=== PATIENT | female | born 1945 | race American Indian/Alaskan Native ===

== ENCOUNTER 2017-02-23 14:47 | Inpatient (IN) | payer MEDICARE ==
[2017-02-23 18:35] VITALS: BMI 23.3
[2017-02-23] MEDS ORDERED: ALENDRONATE 70 MG TAB PO SCH ×2 (19:45→20:00)
[2017-02-23 20:19] VITALS: RESP 20
[2017-02-23] MEDS: Oxycodone/Acetaminophen 5/325 mg Tab PO PRN (21:55)
[2017-02-23] MEDS ORDERED: Patient's Own Med (Simvastatin [Simvastatin] 20 MG) PO SCH (22:00)
[2017-02-23] MEDS: Insulin Regular 100 units/ml SC SCH (23:47)
[2017-02-24] MEDS: Oxycodone/Acetaminophen 5/325 mg Tab PO PRN ×2 (06:26→15:10)
[2017-02-24] MEDS: Insulin Regular 100 units/ml SC SCH ×4 (06:29→22:40)
[2017-02-24] MEDS: Cilostazol 50 mg Tab UD PO SCH ×2 (08:30→17:11)
[2017-02-24] MEDS ORDERED: BISOPROLOL FUMARATE PO SCH (09:00)
[2017-02-24] MEDS ORDERED: Cilostazol 50 mg Tab UD PO SCH (09:00)
[2017-02-24] MEDS ORDERED: HCTZ PO SCH (09:00)
--- NOTE | 2017-02-24 22:09 | HP ---
HISTORY OF PRESENT ILLNESS: This is a 72-year-old -Citizen Of [place] female with history of multiple m edical problems who was admitted to transitional care unit after acute care in [facility]. The patient was admitted for peripheral vascular disease and she underwent a vascular bypass surgery by Frantz Gaytan. The patient had uneventful postoperative course. She was discharged to transitional ca re unit for wound healing as well as deconditioning and rehabilitation. REVIEW OF SYSTEMS: Other review of systems is negative. ALLERGIES: THE PATIENT HAS ALLERGY TO PENICILLIN, SULFA AND TOMATO. SOCIAL HISTORY: Positive smoker, more than 50 years. No ETOH or substance abuse. FAMILY HISTORY: Not contributory. HOME MEDICATIONS: Include aspirin 81 mg, Fosamax 70 mg weekly, metformin 500 mg twice a day, glipizi de 10 mg twice a day, Januvia 100 mg daily, Lipitor 10 mg daily, Pletal 50 mg twice a day, bisoprolol 5 mg daily. PAST MEDICAL HISTORY: Hypertension, type 2 diabetes mellitus, peripheral vascular disease, smoker. PHYSICAL EXAMINATION: GENERAL: The patient is in bed, comfortable at the time of this examination. VITAL SIGNS: Blood pressure 148/70, temperature 97.8, respiratory rate 20, and pulse 77. HEENT: Pupils equal, reactive to light. Normal-appearing mucosa of the conjunctivae, oropharyngeal and nasal membrane mucosa. NECK: Supple, no JVD, no carotid bruit, no lymph node, no thyromegaly. CHEST AND LUNGS: Bilateral symmetrical expansion, good air exchange, no rales, no rhonchi. CARDIOVASCULAR: PMI not localized. S1, S2. No additional sounds. ABDOMEN: Normoactive bowel sounds, no tenderness, no organomegaly, no masses. EXTREMITIES: No cyanosis, no clubbing, no edema. CENTRAL NERVOUS SYSTEM: Alert, awake, oriented x 3. No neurological deficits could be appreciated. ASSESSMENT: 1. Peripheral vascular disease status post vascular bypass surgery. 2. Hypertension. 3. Type 2 diabetes mellitus. 4. Smoker. PLAN: We will do venous Doppler for the swelling of the right more than the left lower extremity and we will elevate the legs and continue current medications. Ney Faust MD cc: 167 TT: 02/24/2017 22:08:56 mn
[2017-02-25] MEDS: Oxycodone/Acetaminophen 5/325 mg Tab PO PRN ×4 (00:16→20:07)
[2017-02-25] MEDS: Insulin Regular 100 units/ml SC SCH ×4 (06:07→22:27)
[2017-02-25] MEDS: Cilostazol 50 mg Tab UD PO SCH ×2 (08:30→17:27)
[2017-02-25] MEDS: guaiFENesin 100 mg/5 ml Syrup UD PO PRN ×2 (17:27→21:30)
[2017-02-26] MEDS: Oxycodone/Acetaminophen 5/325 mg Tab PO PRN ×2 (05:01→22:42)
[2017-02-26] MEDS: Insulin Regular 100 units/ml SC SCH ×3 (06:41→17:11)
[2017-02-26] MEDS: Cilostazol 50 mg Tab UD PO SCH ×2 (09:12→17:13)
[2017-02-26] MEDS: guaiFENesin 100 mg/5 ml Syrup UD PO PRN (09:17)
[2017-02-26] MEDS ORDERED: Oxycodone/Acetaminophen 5/325 mg Tab PO PRN (09:25)
--- NOTE | 2017-02-26 15:47 | PN ---
DATE: 02/26/2017 SUBJECTIVE: The patient is seen today, 02/26/2017. She is not in any cardiopulmonary distress and t he patient is cooperative with physical therapy. OBJECTIVE: VITAL SIGNS: Blood pressure 144/57, temperature 98.6, respiratory rate 20, and pulse 78. HEENT: Pupils equal, reactive to light. Normal-appearing mucosa of the conjunctivae, oropharyngeal and nasal membrane mucosa. NECK: Supple. No JVD, no carotid bruit, no lymph node, no thyromegaly. CHEST AND LUNGS: Bilateral symmetrical expansion, good air exchange. No rales, no rhonchi. CARDIOVASCULAR: PMI not localized. S1, S2. No additional sounds. ABDOMEN: Normoactive bowel sounds. No tenderness, no organomegaly, no masses. EXTREMITIES: No cyanosis, no clubbing, no edema. CENTRAL NERVOUS SYSTEM: Alert, awake, oriented x 3. No neurological deficits could be appreciated. ASSESSMENT: 1. Severe peripheral vascular disease, status post bypass revascularization surgery. 2. Type 2 diabetes mellitus. 3. Hypertension. 4. Hypercholesterolemia. PLAN: Continue current medications and physical therapy. We will hold the antihyperglycemic medicat ions today as the blood glucose is down to 50. Ney Faust MD cc: 167 TT: 02/26/2017 15:46:39 Confirmation # [id number] Dictation # [id number] mn
[2017-02-27] MEDS: Insulin Regular 100 units/ml SC SCH ×4 (00:23→16:32)
[2017-02-27] MEDS: Cilostazol 50 mg Tab UD PO SCH ×2 (09:18→16:27)
[2017-02-27] MEDS: guaiFENesin 100 mg/5 ml Syrup UD PO PRN ×2 (09:21→20:46)
[2017-02-27] MEDS: Oxycodone/Acetaminophen 5/325 mg Tab PO PRN ×2 (09:26→20:46)
[2017-02-28] MEDS: Insulin Regular 100 units/ml SC SCH ×5 (00:15→22:07)
[2017-02-28] MEDS: Oxycodone/Acetaminophen 5/325 mg Tab PO PRN ×2 (07:00→21:25)
[2017-02-28] MEDS: Cilostazol 50 mg Tab UD PO SCH ×2 (09:37→17:25)
[2017-02-28] MEDS: guaiFENesin 100 mg/5 ml Syrup UD PO PRN (12:35)
[2017-02-28] MEDS ORDERED: Azithromycin 500 MG in Sodium Chloride 0.9% 250 ML IVPB SCH (17:00)
[2017-03-01] MEDS: Oxycodone/Acetaminophen 5/325 mg Tab PO PRN ×2 (06:18→17:44)
[2017-03-01] MEDS: Insulin Regular 100 units/ml SC SCH ×4 (08:25→23:18)
[2017-03-01] MEDS: Cilostazol 50 mg Tab UD PO SCH ×2 (09:52→17:45)
[2017-03-01] MEDS: guaiFENesin 100 mg/5 ml Syrup UD PO PRN (10:01)
[2017-03-01] MEDS ORDERED: methylPREDNISolone 40 MG in Sodium Chloride 0.9% 50 ML IVPB SCH (17:00)
[2017-03-01] MEDS: Azithromycin 500 MG in Sodium Chloride 0.9% 250 ML IVPB SCH (18:18)
--- NOTE | 2017-03-01 18:30 | PN ---
DATE: 03/01/2017 SUBJECTIVE: The patient is seen today 03/01/2017. She is still having shortness of breath, cough an d wheezing. PHYSICAL EXAMINATION: VITAL SIGNS: Blood pressure 159/69, temperature 97.9, respiratory rate 20, and pulse 72. HEENT: Pupils equal, reactive to light. Normal-appearing mucosa of the conjunctivae, oropharyngeal and nasal membrane mucosa. NECK: Supple, no JVD, no carotid bruit. No lymph node. No thyromegaly. CHEST AND LUNGS: Bilateral symmetrical expansion. Bilateral rhonchi scattered all over lung haskins. CARDIOVASCULAR: PMI not localized. S1, S2. No additional sounds. ABDOMEN: Normoactive bowel sounds, no tenderness, no organomegaly, no masses. EXTREMITIES: No cyanosis, no clubbing, no edema. CENTRAL NERVOUS SYSTEM: Alert, awake, oriented x 3. No neurological deficits could be appreciated. ASSESSMENT: 1. Acute bronchitis. 2. Exacerbation of chronic obstructive pulmonary disease. 3. Type 2 diabetes mellitus. 4. Hypertension. PLAN: We will do a chest x-ray. Start the patient on DuoNeb as well as Solu-Medrol and azithromycin 500 mg IV daily. Ney Faust MD cc: 167 TT: 03/01/2017 18:30:08 Confirmation # [id number] Dictation # [id number] josué
[2017-03-01] MEDS: Albuterol-Ipratrop 3 mg / 0.5 (3 ml) UD INH SCH (19:25)
[2017-03-01] MEDS: methylPREDNISolone 40 MG in Sodium Chloride 0.9% 50 ML IVPB SCH (21:26)
[2017-03-02] MEDS: Albuterol-Ipratrop 3 mg / 0.5 (3 ml) UD INH SCH ×4 (01:00→20:26)
[2017-03-02] MEDS: methylPREDNISolone 40 MG in Sodium Chloride 0.9% 50 ML IVPB SCH ×3 (05:00→20:27)
[2017-03-02] MEDS: Insulin Regular 100 units/ml SC SCH ×4 (07:00→22:09)
[2017-03-02] MEDS: Cilostazol 50 mg Tab UD PO SCH ×2 (08:04→16:51)
--- NOTE | 2017-03-02 09:12 | RAD ---
HISTORY: pneumonia COMPARISON: Comparison is made to 11/10/2012 TECHNIQUE: Chest PA and lateral FINDINGS: LUNGS: Prominent lung markings at the mid and lower lungs are noted. No evidence of significant change otherwise since the previous exam. PLEURA: No significant pleural effusion identified. No pneumothorax apparent. CARDIOVASCULAR: Mildly enlarged cardiac silhouette. OSSEOUS STRUCTURES: No significant abnormalities. VISUALIZED UPPER ABDOMEN: Normal. OTHER FINDINGS: None. IMPRESSION: Prominent lung markings in the perihilar and lower lungs. Correlate clinically for bronchitis. No definite radiographic evidence of pneumonia. Mild cardiomegaly.
[2017-03-02] MEDS ORDERED: ALENDRONATE 70 MG TAB PO SCH (12:15)
[2017-03-02] MEDS: Oxycodone/Acetaminophen 5/325 mg Tab PO PRN (13:48)
[2017-03-02] MEDS: Azithromycin 500 MG in Sodium Chloride 0.9% 250 ML IVPB SCH (16:51)
[2017-03-03] MEDS: Albuterol-Ipratrop 3 mg / 0.5 (3 ml) UD INH SCH ×4 (01:13→19:08)
[2017-03-03] MEDS: methylPREDNISolone 40 MG in Sodium Chloride 0.9% 50 ML IVPB SCH ×3 (04:55→21:13)
[2017-03-03] MEDS: Insulin Regular 100 units/ml SC SCH ×4 (07:35→23:00)
[2017-03-03] MEDS: Cilostazol 50 mg Tab UD PO SCH ×2 (08:37→17:23)
[2017-03-03] MEDS: Oxycodone/Acetaminophen 5/325 mg Tab PO PRN (16:28)
[2017-03-03] MEDS: Azithromycin 500 MG in Sodium Chloride 0.9% 250 ML IVPB SCH (17:23)
[2017-03-03] MEDS: guaiFENesin 100 mg/5 ml Syrup UD PO PRN (21:12)
--- NOTE | 2017-03-03 23:10 | PN ---
DATE: 03/03/2017 SUBJECTIVE: The patient was seen today, 03/03/2017. She has still a cough with wheezing. PHYSICAL EXAMINATION: VITAL SIGNS: Blood pressure 130/67, , respiratory rate 20, pulse is 92. HEENT: Pupils equal, reactive to light. Normal-appearing mucosa of the conjunctivae, oropharyngeal and nasal membrane mucosa. NECK: Supple. No JVD, no carotid bruit, no lymph node, no thyromegaly. CHEST AND LUNGS: Bilateral symmetrical expansion with diffuse rhonchi all over lung haskins. CARDIOVASCULAR: PMI not localized. S1, S2. No additional sounds. ABDOMEN: Normoactive bowel sounds, no tenderness, no organomegaly, no masses. EXTREMITIES: No cyanosis, no clubbing, no edema. CENTRAL NERVOUS SYSTEM: Alert, awake, oriented x 2. No neurological deficits could be appreciated. ASSESSMENT: 1. Acute bronchitis with exacerbation of chronic obstructive pulmonary disease. 2. Smoker. 3. Status post peripheral vascular disease, revascularization surgery. 4. Type 2 diabetes mellitus. 5. Hypertension. PLAN: We will continue current steroid and IV antibiotics and the patient still has ree and sutures that will have a followup with Dr. Gaytan. Ney Faust MD cc: 167 TT: 03/03/2017 23:08:58 Confirmation # [id number] Dictation # [id number] ln MTDD
[2017-03-04] MEDS: Albuterol-Ipratrop 3 mg / 0.5 (3 ml) UD INH SCH ×4 (01:08→19:39)
[2017-03-04] MEDS: methylPREDNISolone 40 MG in Sodium Chloride 0.9% 50 ML IVPB SCH (05:14)
[2017-03-04] MEDS: Insulin Regular 100 units/ml SC SCH ×4 (06:49→22:27)
[2017-03-04] MEDS: Cilostazol 50 mg Tab UD PO SCH ×2 (08:58→16:46)
[2017-03-04] MEDS: guaiFENesin 100 mg/5 ml Syrup UD PO PRN ×2 (12:28→22:03)
[2017-03-04] MEDS: Oxycodone/Acetaminophen 5/325 mg Tab PO PRN ×2 (12:30→22:06)
[2017-03-05] MEDS: Albuterol-Ipratrop 3 mg / 0.5 (3 ml) UD INH SCH ×3 (01:18→13:00)
[2017-03-05] MEDS: Insulin Regular 100 units/ml SC SCH ×2 (07:27→12:17)
[2017-03-05 08:16] VITALS: BP 141/65; PULSE 93; TEMP 97.7; O2SAT 99
[2017-03-05] MEDS: guaiFENesin 100 mg/5 ml Syrup UD PO PRN (08:44)
[2017-03-05] MEDS: Cilostazol 50 mg Tab UD PO SCH (08:45)
--- NOTE | 2017-03-06 00:23 | DS ---
REASON FOR ADMISSION: This is a 72-year-old -[place] female who was admitted to transitional care unit after acute care admission for bypass surgery for revascularization of severe peripheral vascular disease on the right side. The patient did well in physical therapy. The patient's stay was complicated with exacerbation of chronic obstructive pulmonary disease and acute bronchitis. The patient was started on IV steroids, . The patient was discharged to home to follow up with Dr. Cabrera in 2 days for stitch and staple removal. FINAL DIAGNOSES: 1. Status post revascularization of severe peripheral vascular disease with bypass surgery. 2. Hypertension. 3. Type 2 diabetes mellitus. 4. Smoker. 5. Chronic obstructive pulmonary disease. 4. Acute bronchitis. [facility] Maury Faust MD cc: 167 TT: 03/06/2017 00:23:03 josué GALE
== END 2017-03-05 14:00 | disposition home or self-care (01) | DRG 949 ==
LOC: H.TCU 18:35
PROVIDERS: ADMIT Internal Medicine; ATTEND Internal Medicine
PROC: F08Z4ZZ Home Management Treatment (ICD-10-PCS; principal; 2017-02-23)
PROC: F07Z9ZZ Gait Training/Functional Ambulation Treatment (ICD-10-PCS; 2017-02-23)
PROC: F07L6ZZ Therapeutic Exercise Treatment of Musculoskeletal System - Lower Back / Lower Extremity (ICD-10-PCS; 2017-02-23)
PROC: 5A0945Z Assistance with Respiratory Ventilation, 24-96 Consecutive Hours (ICD-10-PCS; 2017-02-23)
DX: Z48.812 Encounter for surgical aftercare following surgery on the circulatory system (principal); J44.0 Chronic obstructive pulmonary disease with (acute) lower respiratory infection; E11.9 Type 2 diabetes mellitus without complications; J44.1 Chronic obstructive pulmonary disease with (acute) exacerbation; J20.9 Acute bronchitis, unspecified; I10 Essential (primary) hypertension; E78.00 Pure hypercholesterolemia, unspecified; F17.200 Nicotine dependence, unspecified, uncomplicated; I73.9 Peripheral vascular disease, unspecified; Z88.0 Allergy status to penicillin; Z88.2 Allergy status to sulfonamides; Z91.018 Allergy to other foods

== ENCOUNTER 2017-03-15 18:39 | Inpatient (IN) | payer MEDICARE ==
[2017-03-15 21:03] VITALS: BMI 22.5
[2017-03-15] MEDS ORDERED: ALENDRONATE 70 MG TAB PO SCH (22:30)
[2017-03-15] MEDS ORDERED: Patient's Own Med (Simvastatin [Simvastatin] 20 MG) PO SCH (22:30)
[2017-03-15] MEDS: Insulin Regular 100 units/ml SC SCH (23:06)
[2017-03-16] MEDS: Insulin Regular 100 units/ml SC SCH ×4 (06:46→21:12)
[2017-03-16 08:23] VITALS: RESP 20
[2017-03-16] MEDS: Cilostazol 50 mg Tab UD PO SCH ×2 (08:32→17:59)
[2017-03-16] MEDS: Saccharomyces Boulardi 250 mg Cap PO SCH ×2 (08:32→17:57)
[2017-03-16] MEDS: Magnesium Oxide 400 mg Tab UD PO SCH ×2 (08:33→17:58)
[2017-03-16] MEDS: Pantoprazole 40 mg EC Tab PO SCH (08:33)
[2017-03-16] MEDS: Fluticasone-Salmeterol 250-50mcg Diskus INH SCH ×2 (08:34→17:58)
[2017-03-16] MEDS: Potassium Chloride 20 mEq ER Tab PO SCH (08:34)
[2017-03-16] MEDS: Potassium & Sodium Phosphate PO SCH (08:34)
[2017-03-16] MEDS ORDERED: HCTZ PO SCH (09:00)
[2017-03-16] MEDS ORDERED: BISOPROLOL FUMARATE PO SCH (09:00)
[2017-03-16] MEDS ORDERED: Calcium-Vit D 250 mg-125 Units Tab UD PO SCH (19:00)
--- NOTE | 2017-03-16 22:52 | HP ---
HISTORY OF PRESENT ILLNESS: This is a 72-year-old -[place] female who was admitted to transitional care unit after acute care at [facility] for persistent vomiting, abdominal pain and possible infection at the site of previous left fem-fem bypass surgery. The patient was on IV antibiotics and that was continued . No shortness of breath. REVIEW OF SYSTEMS: Other review of systems is negative. ALLERGY: PENICILLIN, SULFA AND TOMATO. PAST MEDICAL HISTORY: Hypertension, type 2 diabetes mellitus, peripheral vascular disease, Status post left fem-fem bypass. SOCIAL HISTORY: The patient is a smoker. No EtOH or substance abuse. FAMILY HISTORY: Noncontributory. MEDICATIONS: The patient is on doxycycline 100 mg twice a day, metformin 500 mg twice a day, glipizide 10 mg twice a day, hydrochlorothiazide 6.25 mg daily, Januvia 100 mg daily, atorvastatin 10 mg daily, Plavix 75 mg daily, Pletal 50 mg twice a day, bisoprolol 5 mg daily. PHYSICAL EXAMINATION: GENERAL: The patient is in bed, comfortable, not in any cardiopulmonary distress. VITAL SIGNS: Blood pressure 128/59, temperature 99, respiratory rate 20, and pulse 85. HEENT: Pupils equal, reactive to light. Normal-appearing mucosa of the conjunctivae, oropharyngeal and nasal membrane mucosa. NECK: Supple, no JVD, no carotid bruit, no lymph node, no thyromegaly. CHEST AND LUNGS: Bilateral symmetrical expansion, good air exchange, no rales, no rhonchi. CARDIOVASCULAR: PMI not localized. S1, S2. No additional sounds. ABDOMEN: Normoactive bowel sounds, no tenderness, no organomegaly, no masses. EXTREMITIES: No cyanosis, no clubbing, no edema. CENTRAL NERVOUS SYSTEM: Alert, awake, oriented x 3. No neurological deficits could be appreciated. ASSESSMENT: 1. Infection at the site of the previously left femoral-femoral bypass. 2. Hypertension. 3. Peripheral vascular disease. 4. Type 2 diabetes mellitus. PLAN: Continue current IV antibiotics and physical therapy for deconditioning and resume the patient's home medications. [facility] Maury Faust MD cc: 167 TT: 03/16/2017 22:51:45 josué GALE
[2017-03-17] MEDS: Insulin Regular 100 units/ml SC SCH ×4 (06:43→21:14)
[2017-03-17] MEDS: Pantoprazole 40 mg EC Tab PO SCH (08:18)
[2017-03-17] MEDS: Potassium Chloride 20 mEq ER Tab PO SCH (08:19)
[2017-03-17] MEDS: Saccharomyces Boulardi 250 mg Cap PO SCH ×2 (08:20→17:31)
[2017-03-17] MEDS: Calcium-Vit D 250 mg-125 Units Tab UD PO SCH (08:20)
[2017-03-17] MEDS: Cilostazol 50 mg Tab UD PO SCH ×2 (08:21→17:29)
[2017-03-17] MEDS: Magnesium Oxide 400 mg Tab UD PO SCH ×2 (08:21→17:31)
[2017-03-17] MEDS: Potassium & Sodium Phosphate PO SCH (08:22)
[2017-03-17] MEDS: Fluticasone-Salmeterol 250-50mcg Diskus INH SCH ×2 (08:23→17:29)
--- NOTE | 2017-03-17 21:38 | PN ---
DATE: 03/17/2017 SUBJECTIVE: She is not in any cardiopulmonary distress. The patient is complaining of constipation. PHYSICAL EXAMINATION: VITAL SIGNS: Blood pressure 118/60, temperature 98.8, respiratory rate 20, and pulse is 90. HEENT: Pupils equal, reactive to light. Normal-appearing mucosa of the conjunctivae, oropharyngeal, and nasal membrane mucosa. NECK: Supple. No JVD. No carotid bruit. No lymph node. No thyromegaly. CHEST AND LUNGS: symmetrical expansion. Good air exchange. No rales. No rhonchi. CARDIOVASCULAR: PMI additional sounds. ABDOMEN: Normoactive bowel sounds. No tenderness. No organomegaly. No masses. EXTREMITIES: No cyanosis. No clubbing. No edema. CENTRAL NERVOUS SYSTEM: Alert, awake, oriented x 3. No neurological deficits could be appreciated. ASSESSMENT: Peripheral vascular disease, status post left fem-fem bypass; hypertension; type 2 diabetes mellitus. PLAN: We will give patient lactulose for constipation. Continue current medications. We will change the antibiotics to p.o. as patient does not have an IV access, and she is a hard needlestick at this time. Ney Faust MD cc: 167 TT: 03/17/2017 21:38:04 Confirmation # [id number] Dictation # [id number] tn MTDD
[2017-03-18] MEDS: Insulin Regular 100 units/ml SC SCH ×4 (06:33→21:21)
[2017-03-18] MEDS: Fluticasone-Salmeterol 250-50mcg Diskus INH SCH ×2 (08:50→16:48)
[2017-03-18] MEDS: Potassium Chloride 20 mEq ER Tab PO SCH (08:52)
[2017-03-18] MEDS: Calcium-Vit D 250 mg-125 Units Tab UD PO SCH (08:52)
[2017-03-18] MEDS: Pantoprazole 40 mg EC Tab PO SCH (08:52)
[2017-03-18] MEDS: Magnesium Oxide 400 mg Tab UD PO SCH ×2 (08:52→16:50)
[2017-03-18] MEDS: Cilostazol 50 mg Tab UD PO SCH ×2 (08:53→16:49)
[2017-03-18] MEDS: Potassium & Sodium Phosphate PO SCH (08:53)
[2017-03-18] MEDS: Saccharomyces Boulardi 250 mg Cap PO SCH ×2 (08:53→16:48)
[2017-03-18 19:43] VITALS: O2SAT 100
[2017-03-19] MEDS: Insulin Regular 100 units/ml SC SCH ×2 (07:05→12:15)
[2017-03-19 07:52] VITALS: BP 139/97; PULSE 96; TEMP 97.9
[2017-03-19] MEDS: Pantoprazole 40 mg EC Tab PO SCH (08:48)
[2017-03-19] MEDS: Fluticasone-Salmeterol 250-50mcg Diskus INH SCH (08:48)
[2017-03-19] MEDS: Saccharomyces Boulardi 250 mg Cap PO SCH (08:48)
[2017-03-19] MEDS: Potassium & Sodium Phosphate PO SCH (08:49)
[2017-03-19] MEDS: Potassium Chloride 20 mEq ER Tab PO SCH (08:49)
[2017-03-19] MEDS: Magnesium Oxide 400 mg Tab UD PO SCH (08:50)
[2017-03-19] MEDS: Calcium-Vit D 250 mg-125 Units Tab UD PO SCH (08:50)
[2017-03-19] MEDS: Cilostazol 50 mg Tab UD PO SCH (08:50)
--- NOTE | 2017-03-21 09:35 | DS ---
A late entry for discharge summary done on 03/19/2017. REASON FOR ADMISSION: This is a 72-year-old female with history of multiple medical problems who was admitted to transitional care unit for completion of IV antibiotic therapy. COURSE OF HOSPITALIZATION: The patient was started on physical therapy and occupational therapy, as well as to continue the IV antibiotics Vibramycin 100 mg twice a day, as per ID recommendations for possible postoperative infection. The patient tolerated it well, and she had no abdominal pain or vomiting. She was discharged home to continue the preadmission medications. FINAL DIAGNOSES: 1. Peripheral vascular disease, status post left fem-fem bypass. 2. Hypertension. 3. Type 2 diabetes mellitus. 4. Possible postoperative surgical site infection that was treated with Vibramycin 100 mg twice a day for a week. [facility] Maury Faust MD cc: 167 TT: 03/21/2017 09:34:43 jn MTDD
== END 2017-03-19 16:01 | disposition home or self-care (01) | DRG 946 ==
LOC: H.TCU 21:04
PROVIDERS: ADMIT Internal Medicine; ATTEND Internal Medicine
PROC: F07Z9FZ Gait Training/Functional Ambulation Treatment using Assistive, Adaptive, Supportive or Protective Equipment (ICD-10-PCS; principal; 2017-03-15)
PROC: F08Z4FZ Home Management Treatment using Assistive, Adaptive, Supportive or Protective Equipment (ICD-10-PCS; 2017-03-15)
PROC: F07L6FZ Therapeutic Exercise Treatment of Musculoskeletal System - Lower Back / Lower Extremity using Assistive, Adaptive, Supportive or Protective Equipment (ICD-10-PCS; 2017-03-16)
DX: T82.7XXD Infection and inflammatory reaction due to other cardiac and vascular devices, implants and grafts, subsequent encounter (principal); E11.9 Type 2 diabetes mellitus without complications; I10 Essential (primary) hypertension; I73.9 Peripheral vascular disease, unspecified; K59.00 Constipation, unspecified; F17.200 Nicotine dependence, unspecified, uncomplicated; Z88.0 Allergy status to penicillin; Z88.2 Allergy status to sulfonamides

== ENCOUNTER 2017-11-17 16:52 | Inpatient (IN) | payer MEDICARE ==
[2017-11-12 13:06] VITALS: BMI 23.3
[2017-11-17 21:23] VITALS: RESP 20
[2017-11-17] MEDS: Insulin Lispro (humaLOG) 100 Units/ml Inj SC SCH (23:15)
[2017-11-18] MEDS: Albuterol-Ipratrop 3 mg / 0.5 (3 ml) UD INH SCH ×4 (01:11→19:36)
[2017-11-18 07:16] LABS: HEMOGLOBIN 9.1 g/dL (12.0-16.0); MEAN CELL VOLUME 86.2 fl (81.0-99.0); MEAN CORPUSCULAR HEMOGLOBIN 27.5 pg (27.0-31.0); MEAN CORPUSCULAR HGB CONC 31.9 g/dL (33.0-37.0); RBC 3.32 Mil/uL (3.80-5.20); RED CELL DISTRIBUTION WIDTH 17.9 % (11.5-14.5); WHITE BLOOD COUNT 8.7 K/uL (4.8-10.8)
[2017-11-18 07:43] LABS: BLOOD UREA NITROGEN 8 mg/dl (7-17); CALCIUM 10.1 mg/dL (8.4-10.2); GFR AFRICAN-AMERICAN > 60; GFR NON-AFRICAN AMERICAN > 60
[2017-11-18] MEDS: Insulin Lispro (humaLOG) 100 Units/ml Inj SC SCH ×4 (09:38→23:33)
[2017-11-18] MEDS: Cilostazol 50 mg Tab UD PO SCH ×2 (09:41→16:50)
[2017-11-18] MEDS: Multivitamin With Minerals Tab PO SCH (09:41)
[2017-11-18] MEDS ORDERED: Tuberculin 5 Units/0.1 ml Inj ID ONE (10:00)
--- NOTE | 2017-11-18 12:23 | CP.PCM.CON ---
History of Present Illness - History of Present Illness History of Present Illness: Infectious Disease Consult Note- asked to see this patient at the request of for right lower leg cellulitis. HPI- patient is a 72 year old female with PMH of DM II, PVD s/p fem-fem bypass with grafts in 02/2017 who statew she ahs been getting swelling in her left ankle and foot for the past few weeks and she went to see her PMD and was sent to ED ( [facility]) for further evaluation and treatment. Pt. also states that she had noticed her 3rd and 4th toe were getting dark discoloration. Patient explains she had revision of her LE bypass done at [facility] to re -vascularize and was seen by ID specialsit there and has been on IV vancomycin since 11/13/2017 and she also states she has 2 wounds on her right ankle and lower leg region that are being addressed by wound nurse . she denies having open wounds at home and states it opened up 2 days ago on its' own denies any pus discharge. She was transferred to TCU here for rehab , PT and completion of her IV abx course. Patient denies any fever or chills but states her right ankle is swollen still and she has pain there as well. PMH: DM, HTN, PVD PSH: Colectomy, Hysterectomy, breast mass SH: Former smoker quit 3 weeks ago, no EtOH, No drug use All: PCN, Sulfa Meds: See MAR Review of Systems - Review of Systems Review of Systems: ROS- denies any fever or chills, denies any BACON, denies any cough, denies any sob, denies anyc hest pain, denies any abd, pain, denies any n/v, denies any dysurea , denies any diarrhea c/o right ankle swelling and pain Past Patient History - Infectious Disease Hx of Infectious Diseases: None - Past Medical History & Family History Past Medical History?: Yes - Past Social History Smoking Status: Former Smoker Alcohol: None Drugs: Denies Home Situation {Lives}: Alone - CARDIAC Hx Hypercholesterolemia: Yes Hx Hypertension: Yes - PULMONARY Hx Chronic Obstructive Pulmonary Disease (COPD): Yes - NEUROLOGICAL Hx Neurological Disorder: No - HEENT Hx Cataracts: Yes - RENAL Hx Chronic Kidney Disease: No - ENDOCRINE/METABOLIC Hx Diabetes Mellitus Type 2: Yes - INTEGUMENTARY Hx Dermatological Problems: No - MUSCULOSKELETAL/RHEUMATOLOGICAL Hx Arthritis: Yes (HANDS) Hx Falls: No - GASTROINTESTINAL Hx Gastrointestinal Disorders: Yes Hx Bowel Surgery: Yes (COLON RESECTION FOR OBSTRUCTION?) Hx Constipation: Yes Hx Gastroesophageal Reflux: Yes Other/Comment: HX.OBSTRUCTION HAD BOWEL RESECTION - GENITOURINARY/GYNECOLOGICAL Hx Genitourinary Disorders: No - PSYCHIATRIC Hx Anxiety: Yes Hx Substance Use: No - SURGICAL HISTORY Hx Surgeries: Yes Hx Angiogram: Yes (Stenting bilateral legs) Hx Breast Biopsy: Yes (RT. 11 yrs old) Hx Herniorrhaphy: Yes (UMBILICAL) Hx Hysterectomy: Yes (LEAH) Hx Orthopedic Surgery: Yes (CLAU. BUNIONECTOMY) Hx Tubal Ligation: Yes - ANESTHESIA Hx Anesthesia: Yes Hx Anesthesia Reactions: No Hx Malignant Hyperthermia: No Has any member of the family had a problem w/ anesthesia?: No Meds Allergies/Adverse Reactions: Allergies Allergy/AdvReac Type Severity Reaction Status Date / Time Penicillins Allergy SWELLING Verified 11/12/17 13:13 Sulfa (Sulfonamide Allergy RASH Verified 11/12/17 13:13 Antibiotics) tomato AdvReac GI UPSET Verified 11/12/17 13:13 - Medications Medications: Current Medications Albuterol/Ipratropium (Duoneb 3 Mg/0.5 Mg (3 Ml) Ud) 3 ml INH RQ6 [facility] Last Admin: 11/18/17 08:39 Dose: 3 ml Alprazolam (Xanax) 0.25 mg PO DAILY PRN PRN Reason: Anxiety Stop: 11/24/17 22:35 Bisoprolol Fumarate (Zebeta) 5 mg PO DAILY [facility] Last Admin: 11/18/17 09:42 Dose: 5 mg Cilostazol (Pletal) 50 mg PO BID [facility] Last Admin: 11/18/17 09:41 Dose: 50 mg Clopidogrel Bisulfate (Plavix) 75 mg PO DAILY [facility] Last Admin: 11/18/17 09:41 Dose: 75 mg Docusate Sodium (Colace) 200 mg PO DAILY [facility] Last Admin: 11/18/17 09:35 Dose: 200 mg Heparin Sodium (Porcine) (Heparin) 5,000 units SC Q12 [facility] PRN Reason: Protocol Last Admin: 11/18/17 09:37 Dose: 5,000 units Hydrochlorothiazide (Hydrodiuril) 6.25 mg PO DAILY [facility] Last Admin: 11/18/17 09:40 Dose: 6.25 mg Vancomycin HCl 1 gm/ Sodium (Chloride) 250 mls @ 166.667 mls/hr IVPB DAILY@ 1700 [facility] Insulin Human Lispro (Humalog) 0 units SC ACCU-CHECK [facility] PRN Reason: Protocol Last Admin: 11/18/17 09:38 Dose: Not Given Losartan Potassium (Cozaar) 25 mg PO DAILY [facility] Last Admin: 11/18/17 09:36 Dose: 25 mg Multivitamins/Minerals (Therapeutic-M Tab) 1 tab PO DAILY [facility] Last Admin: 11/18/17 09:41 Dose: 1 tab Tramadol HCl (Ultram) 50 mg PO Q6 PRN PRN Reason: Pain, severe (8-10) Last Admin: 11/18/17 09:45 Dose: 50 mg Physical Exam - Constitutional Appears: Non-toxic, No Acute Distress - Head Exam Head Exam: ATRAUMATIC - Eye Exam Eye Exam: EOMI, PERRL - ENT Exam ENT Exam: Normal Oropharynx - Neck Exam Neck exam: Positive for: Full Rom - Respiratory Exam Respiratory Exam: Clear to Auscultation Bilateral, NORMAL BREATHING PATTERN - Cardiovascular Exam Cardiovascular Exam: RRR, +S1, +S2 - GI/Abdominal Exam GI & Abdominal Exam: Normal Bowel Sounds, Soft Additional comments: NT, ND - Extremities Exam Additional comments: right dorasl foot swelling up to malleolar region, warm to touch, minimal dark discoloration of the right 3rd and 4th toe but warm to touch 2 open wounds one on superior region of the posterior ankle region, 4 x 4 cm , clean , no pus, no malodor smaller one on posterior midcalf region 2x 4 cm, no malodor, no pus - Neurological Exam Neurological exam: Alert, Oriented x3 Results - Vital Signs Recent Vital Signs: Last Vital Signs Temp 97.9 F 11/18/17 08:07 Pulse 78 11/18/17 09:36 Resp 20 11/18/17 08:07 BP 128/52 L 11/18/17 09:36 Pulse Ox 99 11/18/17 08:07 - Labs Result Diagrams: 11/18/17 06:35 11/18/17 06:35 Labs: Laboratory Results - last 24 hr 11/17/17 11/18/17 11/18/17 22:53 05:11 06:35 WBC 8.7 RBC 3.32 L Hgb 9.1 L Hct 28.6 L MCV 86.2 MCH 27.5 MCHC 31.9 L RDW 17.9 H Plt Count 220 Sodium Potassium Chloride Carbon Dioxide Anion Gap BUN Creatinine Est GFR ( Amer) Est GFR (Non-Af Amer) POC Glucose (mg/dL) 95 120 H Random Glucose Calcium 11/18/17 06:35 WBC RBC Hgb Hct MCV MCH MCHC RDW Plt Count Sodium 141 Potassium 3.9 Chloride 106 Carbon Dioxide 23 Anion Gap 16 BUN 8 Creatinine 0.7 Est GFR ( Amer) > 60 Est GFR (Non-Af Amer) > 60 POC Glucose (mg/dL) Random Glucose 98 Calcium 10.1 Microbiology 11/12/17 15:15 Blood Blood Culture - Final 11/12/17 15:15 Blood Gram Stain - Final NO GROWTH AFTER 5 DAYS TEST NOT PERFORMED 11/12/17 15:00 Blood Blood Culture - Final 11/12/17 15:00 Blood Gram Stain - Final NO GROWTH AFTER 5 DAYS TEST NOT PERFORMED Accession No. : [id number] Patient Name / ID : KEILY Winkler / [id number] Exam Date : 11/15/2017 09:40:02 ( Approved ) Study Comment : Sex / Age : F / 72Y Creator : Garcia Guillaume MD Dictator : Garcia Guillaume MD Continuous Improvement Director : Manager [employer] : Garcia Guillaume MD Approver2 : Report Date : 11/15/2017 17:10:24 My Comment : PROCEDURE: Three-phase bone scan HISTORY: rt ankle cellulitis/old fracture rt ankle COMPARISON: 11/12/2017 plain film radiographs right ankle TECHNIQUE: Following administration of 24.1 miCu of Tc MDP multiplanar three-phase bone scan obtained attention right lower extremity FINDINGS: Flow component: Unremarkable Blood pool component: No focal or diffuse abnormalities Delayed images at 3:00: Within normal limits Other findings: None. IMPRESSION: No evidence of acute osseous process. Accession No. : [id number] Patient Name / ID : KEILY Winkler / [id number] Exam Date : 11/12/2017 14:22:15 ( Approved ) Study Comment : Sex / Age : F / 72Y Creator : Anita Garces MD Dictator : Anita Garces MD Continuous Improvement Director : Manager Retail Store : Anita Garces MD Approver2 : Report Date : 11/12/2017 14:40:46 My Comment : PROCEDURE: Right Ankle Radiographs. HISTORY: redness to the posterior ankle, r/o foreign body COMPARISON: None FINDINGS: BONES: There is no acute displaced fracture or bone destruction. Bone alignment is normal. There is diffuse bone demineralization. Evaluate corticated ossific density inferior to the lateral malleolus likely represents an old fracture deformity. There is a small plantar calcaneal spur. Postsurgical changes in the 1st metatarsal. JOINTS: Normal. No osteoarthritis. Ankle mortise maintained. Talar dome intact SOFT TISSUES: There is moderate periarticular soft tissue swelling. OTHER FINDINGS: Atherosclerotic vascular calcifications are present. IMPRESSION: No acute displaced fracture or dislocation. Moderate periarticular soft tissue swelling. Old fracture deformity in the lateral malleolus. Assessment & Plan (1) Joint swelling Status: Acute (2) PVD (peripheral vascular disease) Status: Acute (3) Status post femorofemoral bypass surgery Status: Acute (4) Cellulitis Status: Acute - Assessment and Plan (Free Text) Assessment: A/P- 72 year old female with DM II, PVD s/p Balloon/stent angioplasty of common femoral and balloon angioplast of SFA om 11/16/2017 at [facility] and has been on IV vancomycin as per ID specialist at that hospital for RLE /ankle edema ? cellulitis for 1 more week. patietn is afebrile normal wbc, no left shift Bone scan - no evidence of OM as per report. 2 open wounds but w/o pus or malodor. blood cx- neg x 2\ Plan- advise to continue with IV vancomycin for 1 more week. keep trough <15. monitor renal function and hearing while on vancomycin. advised to keep right leg elevated while in bed or sitting. wound dressing changes as per wound nurse. all above d/w patient and her granddaughter who is at bedside and their questions were answered. Thank you for allowing me to take part in the care of this patient.
[2017-11-18] MEDS ORDERED: Vancomycin 1 g Inj IVPB SCH (17:00)
--- NOTE | 2017-11-18 22:07 | HP ---
HISTORY OF PRESENT ILLNESS: This is a 72-year-old -[place] female with history of multiple medical problems, recently was admitted to [facility] with ischemia of the right lower extremity, status post revascularization procedures by putting stents in the right lower extremity. The patient was kept on heparin for 1 day and currently on Plavix as well as Pletal. The patient is complaining of swelling of the right lower extremity and pain also. REVIEW OF SYSTEMS: Other review of systems is negative. ALLERGY: POSITIVE FOR PENICILLIN, SULFA AND TOMATO. SOCIAL HISTORY: Smoke. No EtOH or substance abuse. FAMILY HISTORY: Noncontributory. MEDICATIONS: As per MAR. PAST MEDICAL HISTORY: Type 2 diabetes mellitus, hypertension, peripheral vascular disease, hypercholesterolemia, COPD. PHYSICAL EXAMINATION: GENERAL: The patient is in bed comfortable, not in any cardiopulmonary distress. VITAL SIGNS: Blood pressure of 147/64, temperature 97.7, respiratory rate 20 and pulse 78. HEENT: Pupils equal, reactive to light. Normal-appearing mucosa of the conjunctivae, oropharyngeal and nasal membrane mucosa. NECK: Supple. No JVD. No carotid bruit. No lymph node. No thyromegaly. CHEST AND LUNGS: Bilateral symmetrical expansion. Good air exchange. No rales. No rhonchi. CARDIOVASCULAR SYSTEM: PMI not localized. S1 and S2. No additional sounds. ABDOMEN: Normoactive bowel sounds. No tenderness. No organomegaly. No masses. EXTREMITIES: No cyanosis. No clubbing. There is edema of the right lower extremity. CENTRAL NERVOUS SYSTEM: Alert, awake, oriented x3. No neurological deficits could be appreciated. ASSESSMENT: 1. Right lower extremity swelling with warm to touch and dark discoloration of the right third and fourth toes with 2 open wounds, one around the ankle region. 2. Hypertension. 3. Chronic obstructive pulmonary disease. 4. Type 2 diabetes mellitus. 5. Severe peripheral vascular disease with status post balloon and stent angioplasty of the common femoral and balloon angioplasty of the superficial femoral artery on 11/16/2017. PLAN: ID consult. Continue vancomycin. Continue current medications. Elevate the leg as much as possible. Ney Faust MD
[2017-11-19] MEDS: Albuterol-Ipratrop 3 mg / 0.5 (3 ml) UD INH SCH ×4 (00:59→19:45)
[2017-11-19] MEDS: Insulin Lispro (humaLOG) 100 Units/ml Inj SC SCH ×3 (07:09→16:19)
[2017-11-19] MEDS: Cilostazol 50 mg Tab UD PO SCH ×2 (08:54→16:58)
[2017-11-19] MEDS: Multivitamin With Minerals Tab PO SCH (08:54)
[2017-11-20] MEDS: Albuterol-Ipratrop 3 mg / 0.5 (3 ml) UD INH SCH ×4 (01:02→19:26)
[2017-11-20] MEDS: Insulin Lispro (humaLOG) 100 Units/ml Inj SC SCH ×5 (06:13→21:59)
[2017-11-20] MEDS: Cilostazol 50 mg Tab UD PO SCH ×2 (09:50→16:15)
[2017-11-20] MEDS: Multivitamin With Minerals Tab PO SCH (09:50)
[2017-11-21] MEDS: Albuterol-Ipratrop 3 mg / 0.5 (3 ml) UD INH SCH ×4 (01:02→19:25)
--- NOTE | 2017-11-21 03:08 | PN ---
DATE: 11/20/2017 SUBJECTIVE: The patient is seen today on 11/20/2017. She is not in any cardiopulmonary distress. There is bilateral lower extremity swelling. PHYSICAL EXAMINATION VITAL SIGNS: Blood pressure of 177/62, temperature 97.9, respiratory rate 20, and pulse 19. HEENT: Pupils equal, reactive to light. Normal-appearing mucosa of the conjunctivae, oropharyngeal and nasal membrane mucosa. NECK: Supple. No JVD. No carotid bruit. No lymph node. No thyromegaly. CHEST AND LUNGS: Bilateral symmetrical expansion. Good air exchange. No rales, no rhonchi. CARDIOVASCULAR SYSTEM: PMI not localized. S1, S2. No additional sounds. ABDOMEN: Normoactive bowel sounds. No tenderness. No organomegaly. No masses. EXTREMITIES: No cyanosis, no clubbing. There is +2 edema of both lower extremity. CENTRAL NERVOUS SYSTEM: Alert, awake, oriented x3. No neurological deficits could be appreciated. ASSESSMENT: 1. Bilateral lower extremity edema likely dependent as the patient feels more comfortable on putting her legs down due to peripheral vascular disease. 2. Severe peripheral vascular disease, status post revascularization with stent. Currently on both Plavix and Pletal. 3. Hypertension. 4. Type 2 diabetes mellitus. 5. Hypercholesterolemia. PLAN: Continue current medications and we will add Lasix 20 mg IV push. Elevate the leg as tolerated. Ney Faust MD
[2017-11-21] MEDS: Insulin Lispro (humaLOG) 100 Units/ml Inj SC SCH ×4 (06:18→22:17)
[2017-11-21] MEDS: Cilostazol 50 mg Tab UD PO SCH ×2 (08:13→16:41)
[2017-11-21] MEDS: Multivitamin With Minerals Tab PO SCH (08:13)
[2017-11-22] MEDS: Albuterol-Ipratrop 3 mg / 0.5 (3 ml) UD INH SCH ×4 (01:15→19:41)
[2017-11-22] MEDS: Insulin Lispro (humaLOG) 100 Units/ml Inj SC SCH ×4 (06:33→22:27)
[2017-11-22] MEDS: Cilostazol 50 mg Tab UD PO SCH ×2 (08:07→16:44)
[2017-11-22] MEDS: Multivitamin With Minerals Tab PO SCH (08:07)
--- NOTE | 2017-11-22 11:28 | CP.PCM.PN ---
Subjective - Date & Time of Evaluation Date of Evaluation: 11/22/17 Time of Evaluation: 15:15 - Subjective Subjective: ID Note- Patent seen and examined today in TCU. patient in good spirits. denies any fever or chills. states she still has pain in right ankle/foot region but less than before. Objective - Vital Signs/Intake and Output Vital Signs (last 24 hours): Temp Pulse Resp BP Pulse Ox 97.2 F L 70 20 132/65 99 11/22/17 08:05 11/22/17 08:06 11/22/17 08:05 11/22/17 10:00 11/22/17 08:05 - Medications Medications: Current Medications Albuterol/Ipratropium (Duoneb 3 Mg/0.5 Mg (3 Ml) Ud) 3 ml INH RQ6 [facility] Last Admin: 11/22/17 07:19 Dose: 3 ml Alprazolam (Xanax) 0.25 mg PO DAILY PRN PRN Reason: Anxiety Stop: 11/24/17 22:35 Bisoprolol Fumarate (Zebeta) 5 mg PO DAILY [facility] Last Admin: 11/22/17 08:07 Dose: 5 mg Cilostazol (Pletal) 50 mg PO BID [facility] Last Admin: 11/22/17 08:07 Dose: 50 mg Clopidogrel Bisulfate (Plavix) 75 mg PO DAILY [facility] Last Admin: 11/22/17 08:08 Dose: 75 mg Docusate Sodium (Colace) 200 mg PO DAILY [facility] Last Admin: 11/22/17 08:06 Dose: 200 mg Furosemide (Lasix) 20 mg PO DAILY [facility] Last Admin: 11/22/17 10:00 Dose: 20 mg Heparin Sodium (Porcine) (Heparin) 5,000 units SC Q12 [facility] PRN Reason: Protocol Last Admin: 11/22/17 08:05 Dose: 5,000 units Insulin Human Lispro (Humalog) 0 units SC ACCU-CHECK [facility] PRN Reason: Protocol Last Admin: 11/22/17 06:33 Dose: Not Given Linezolid (Zyvox) 600 mg PO Q12 [facility] PRN Reason: Protocol Losartan Potassium (Cozaar) 25 mg PO DAILY [facility] Last Admin: 11/22/17 08:06 Dose: 25 mg Multivitamins/Minerals (Therapeutic-M Tab) 1 tab PO DAILY [facility] Last Admin: 11/22/17 08:07 Dose: 1 tab Mupirocin (Bactroban Ointment) 1 applic TOP DAILY [facility] Last Admin: 11/22/17 10:39 Dose: 1 applic Tramadol HCl (Ultram) 50 mg PO Q6 PRN PRN Reason: Pain, severe (8-10) Last Admin: 11/22/17 08:09 Dose: 50 mg - Labs Labs: - Additional Findings Additional findings: - Constitutional Appears: Non-toxic, No Acute Distress - Head Exam Head Exam: ATRAUMATIC - Eye Exam Eye Exam: EOMI, PERRL - ENT Exam ENT Exam: Normal Oropharynx - Neck Exam Neck exam: Positive for: Full Rom - Respiratory Exam Respiratory Exam: Clear to Auscultation Bilateral, NORMAL BREATHING PATTERN - Cardiovascular Exam Cardiovascular Exam: RRR, +S1, +S2 - GI/Abdominal Exam GI & Abdominal Exam: Normal Bowel Sounds, Soft Additional comments: NT, ND - Extremities Exam Additional comments: right dorsal foot decreased swelling up to lateral malleolar region but atmospheric drier tender to touch 2 superficial open wounds on superior region of the posterior ankle region, 4 x 4 cm and other 2 x 2 cm, clean , no pus, no malodor midcalf wound has healed. - Neurological Exam Neurological exam: Alert, Oriented x 3 Laboratory Results - last 72 hr 11/19/17 11/19/17 11/20/17 15:57 20:43 05:25 ESR POC Glucose (mg/dL) 125 H 197 H 101 11/20/17 11/20/17 11/20/17 11:00 16:20 20:55 ESR POC Glucose (mg/dL) 212 H 99 224 H 11/21/17 11/21/17 11/21/17 05:00 10:59 16:16 ESR POC Glucose (mg/dL) 112 H 138 H 196 H 11/21/17 11/22/17 11/22/17 20:49 05:06 14:05 ESR 74 H POC Glucose (mg/dL) 137 H 99 Microbiology 11/12/17 15:15 Blood Blood Culture - Final 11/12/17 15:15 Blood Gram Stain - Final NO GROWTH AFTER 5 DAYS TEST NOT PERFORMED 11/12/17 15:00 Blood Blood Culture - Final 11/12/17 15:00 Blood Gram Stain - Final NO GROWTH AFTER 5 DAYS TEST NOT PERFORMED Assessment and Plan (1) Joint swelling Status: Acute (2) PVD (peripheral vascular disease) Status: Acute (3) Status post femorofemoral bypass surgery Status: Acute (4) Cellulitis Status: Acute - Assessment and Plan (Free Text) Assessment: A/P- 72 year old female with DM II, PVD s/p Balloon/stent angioplasty of common femoral and balloon angioplast of SFA om 11/16/2017 at [facility] and has been on IV vancomycin as per ID specialist at that hospital for RLE /ankle edema ? cellulitis for 1 more week. patient is afebrile normal wbc, no left shift Bone scan - no evidence of OM as per report. 2 open wounds but w/o pus or malodor. blood cx- neg x 2 initial ESR-88 Plan- so far has received 4 days of Iv vancomycin while here at TCU and prior to that was on VAnco at [facility] for another 4 -5 days. since pt. has no IVL access as per nurse and is a hard stick advise to start Linezolid 600 mg po q12 check another ESR now. advised to keep right leg elevated while in bed or sitting. wound dressing changes as per wound nurse.
[2017-11-23] MEDS: Albuterol-Ipratrop 3 mg / 0.5 (3 ml) UD INH SCH ×4 (02:20→19:32)
--- NOTE | 2017-11-23 02:35 | PN ---
DATE: 11/22/2017 DAILY PROGRESS NOTE SUBJECTIVE: Patient is seen today, 11/22/2017. She is not in any cardiopulmonary distress. She still has pain in the right lower extremity with swelling. Patient likes to sit and then her legs down for the pain relief. PHYSICAL EXAMINATION: VITAL SIGNS: Blood pressure 143/58, temperature 97.2, respiratory rate 20 and pulse 80, HEENT: Pupils equal, reactive to light. Normal-appearing mucosa of the conjunctivae, oropharyngeal and nasal membrane mucosa. NECK: Supple. No JVD. No carotid bruit. No lymph node. No thyromegaly. CHEST AND LUNGS: Bilateral symmetrical expansion. Good air exchange. No rales. No rhonchi. CARDIOVASCULAR SYSTEM: PMI not localized. S1, S2. No additional sounds. ABDOMEN: Normoactive bowel sounds. No tenderness. No organomegaly. No masses. EXTREMITIES: There is edema of both lower extremities, right more than left, and patient has ischemic ulcer on the right lower extremity above the ankle. CENTRAL NERVOUS SYSTEM: Alert, awake, oriented x3. No neurological deficit could be appreciated. ASSESSMENT: 1. Severe peripheral vascular disease status post revascularization with ischemic ulcer of the right lower extremity. 2. Hypertension. 3. Type 2 diabetes mellitus. PLAN: Discussed the patient's condition with Dr. Gaytan who will have a followup with the patient and will continue current and medications including double antiplatelet and physical therapy and occupational therapy. Ney Faust MD
[2017-11-23] MEDS: Insulin Lispro (humaLOG) 100 Units/ml Inj SC SCH ×4 (06:33→22:00)
[2017-11-23] MEDS: Cilostazol 50 mg Tab UD PO SCH ×2 (09:45→16:52)
[2017-11-23] MEDS: Multivitamin With Minerals Tab PO SCH (09:45)
[2017-11-24] MEDS: Albuterol-Ipratrop 3 mg / 0.5 (3 ml) UD INH SCH ×2 (01:06→07:28)
[2017-11-24] MEDS: Insulin Lispro (humaLOG) 100 Units/ml Inj SC SCH ×2 (07:08→12:21)
[2017-11-24] MEDS: Multivitamin With Minerals Tab PO SCH (08:25)
[2017-11-24] MEDS: Cilostazol 50 mg Tab UD PO SCH (08:25)
[2017-11-24 08:27] VITALS: BP 149/63; PULSE 71; TEMP 97.3; O2SAT 100
--- NOTE | 2017-11-25 13:12 | DS ---
REASON FOR ADMISSION: This is a 72-year-old -[place] female who was admitted to transitional care unit for deconditioning and wound care and antibiotic therapy. COURSE OF HOSPITALIZATION: Patient was admitted to transitional care unit of [facility]. Patient was continued on physical therapy and occupational therapy. Patient had ID consult by Dr. Nunez. Patient was discharged home on Zyvox as well as Pletal and Plavix in addition to her regular medications. Patient will follow up with Dr. Faust as well as Dr. Gaytan in 1 week. FINAL DIAGNOSES: 1. Peripheral vascular disease, status post revascularization by balloon and stenting. 2. Hypertension. 3. Type 2 diabetes mellitus. 4. Chronic obstructive pulmonary disease. [facility] MD Govind
== END 2017-11-24 13:45 | disposition home health service (06) | DRG 949 ==
LOC: H.TCU 19:09
PROVIDERS: ADMIT Internal Medicine; ATTEND Internal Medicine
PROC: F07Z9FZ Gait Training/Functional Ambulation Treatment using Assistive, Adaptive, Supportive or Protective Equipment (ICD-10-PCS; principal; 2017-11-17)
PROC: F08Z4FZ Home Management Treatment using Assistive, Adaptive, Supportive or Protective Equipment (ICD-10-PCS; 2017-11-17)
PROC: F07M6FZ Therapeutic Exercise Treatment of Musculoskeletal System - Whole Body using Assistive, Adaptive, Supportive or Protective Equipment (ICD-10-PCS; 2017-11-17)
DX: Z48.812 Encounter for surgical aftercare following surgery on the circulatory system (principal); L03.115 Cellulitis of right lower limb; E11.51 Type 2 diabetes mellitus with diabetic peripheral angiopathy without gangrene; L97.919 Non-pressure chronic ulcer of unspecified part of right lower leg with unspecified severity; J44.9 Chronic obstructive pulmonary disease, unspecified; E78.00 Pure hypercholesterolemia, unspecified; I10 Essential (primary) hypertension; K21.9 Gastro-esophageal reflux disease without esophagitis; Z87.891 Personal history of nicotine dependence; Z90.710 Acquired absence of both cervix and uterus; Z98.51 Tubal ligation status; F41.9 Anxiety disorder, unspecified; I99.8 Other disorder of circulatory system; K59.00 Constipation, unspecified; M19.042 Primary osteoarthritis, left hand; M19.041 Primary osteoarthritis, right hand; N63.0 Unspecified lump in unspecified breast; Z87.81 Personal history of (healed) traumatic fracture; M25.40 Effusion, unspecified joint; M79.604 Pain in right leg; M79.89 Other specified soft tissue disorders; R60.0 Localized edema; Z88.0 Allergy status to penicillin; Z88.2 Allergy status to sulfonamides

== ENCOUNTER 2018-02-28 23:12 | Inpatient (IN) | payer MEDICARE ==
[2018-02-28 23:26] VITALS: BMI 22.5
[2018-03-01] MEDS: Oxycodone/Acetaminophen 5/325 mg Tab PO PRN ×2 (01:12→10:58)
[2018-03-01 01:56] VITALS: RESP 20
[2018-03-01] MEDS: metroNIDAZOLE 500mg/100ml NS 100 ML IVPB SCH ×3 (04:20→21:00)
[2018-03-01] MEDS ORDERED: metroNIDAZOLE 500mg/100ml NS IVPB SCH (05:00)
[2018-03-01] MEDS: Ciprofloxacin 400mg/200ml D5W 400 MG/200 ML BAG IVPB SCH ×2 (06:52→17:02)
[2018-03-01] MEDS: Insulin Lispro (humaLOG) 100 Units/ml Inj SC SCH ×4 (06:52→21:08)
[2018-03-01] MEDS: Cilostazol 50 mg Tab UD PO SCH ×2 (08:34→17:05)
[2018-03-01] MEDS ORDERED: CIPROFLOXACIN LACTATE IV SCH (09:00)
[2018-03-01] MEDS ORDERED: D5W IV SCH (09:00)
[2018-03-01] MEDS ORDERED: Enoxaparin 30 mg Syringe SC SCH (09:00)
--- NOTE | 2018-03-01 23:41 | HP ---
HISTORY OF PRESENT ILLNESS: This is a 73-year-old female who was recently diagnosed with right-sided colitis, was treated with IV antibiotics, and discharged to Transitional Care Unit for completion of the course of IV antibiotics and for deconditioning and physical therapy. The patient used to have symptoms of nausea and vomiting, which has resolved during the admission and acute care. The patient's diet was advanced to clear liquid then full liquid and today she is taking a regular food. REVIEW OF SYSTEMS: Other review of systems is negative. ALLERGIES: NO KNOWN ALLERGY. MEDICATIONS: As per MAR. PAST MEDICAL HISTORY: Peripheral vascular disease, hypertension, and type 2 diabetes mellitus. SOCIAL HISTORY: Positive for smoking. No EtOH or substance abuse. FAMILY HISTORY: Noncontributory. PHYSICAL EXAMINATION: GENERAL: The patient is in no cardiopulmonary distress at the time of this examination. VITAL SIGNS: Blood pressure 135/70, temperature 98.4, respiratory rate 18, and pulse 80 CHEST AND LUNGS: Bilateral symmetrical expansion. CARDIOVASCULAR: PMI not localized. S1 and S2. No additional sounds. ABDOMEN: Normoactive bowel sounds. There is tenderness on the right lower quadrant. No rebound tenderness or rigidity. EXTREMITIES: No cyanosis. No clubbing. No edema. CENTRAL NERVOUS SYSTEM: Alert, awake, and oriented x2. No neurological deficit could be appreciated. ASSESSMENT: Colitis, hypertension, type 2 diabetes mellitus, and peripheral vascular disease. PLAN: Continue current IV antibiotics. We will repeat blood work and give pain management as needed and GI followup. Ney Faust MD MTDD
[2018-03-02] MEDS: Oxycodone/Acetaminophen 5/325 mg Tab PO PRN ×2 (05:23→11:26)
[2018-03-02] MEDS: metroNIDAZOLE 500mg/100ml NS 100 ML IVPB SCH ×3 (05:24→20:27)
[2018-03-02] MEDS: Ciprofloxacin 400mg/200ml D5W 400 MG/200 ML BAG IVPB SCH ×2 (05:29→17:29)
[2018-03-02] MEDS: Insulin Lispro (humaLOG) 100 Units/ml Inj SC SCH ×4 (06:31→21:27)
[2018-03-02 06:57] LABS: HEMOGLOBIN 9.8 g/dL (12.0-16.0); MEAN CELL VOLUME 89.1 fl (81.0-99.0); MEAN CORPUSCULAR HEMOGLOBIN 29.1 pg (27.0-31.0); MEAN CORPUSCULAR HGB CONC 32.7 g/dL (33.0-37.0); RBC 3.36 Mil/uL (3.80-5.20); RED CELL DISTRIBUTION WIDTH 15.6 % (11.5-14.5)
[2018-03-02 07:09] LABS: BLOOD UREA NITROGEN 5 mg/dl (7-17); CALCIUM 9.5 mg/dL (8.4-10.2); GFR AFRICAN-AMERICAN > 60; GFR NON-AFRICAN AMERICAN > 60
[2018-03-02] MEDS: Cilostazol 50 mg Tab UD PO SCH ×2 (08:23→17:30)
--- NOTE | 2018-03-02 15:18 | PN ---
DATE: 03/02/2018 DAILY PROGRESS NOTE SUBJECTIVE: The patient is seen today, 03/02/2018. Abdominal pain is less. OBJECTIVE: VITAL SIGNS: Blood pressure 143/66, temperature 98.2, respiratory rate 20, and pulse 80. HEENT: Pupils equal and reactive to light. Normal-appearing mucosa of the conjunctivae, oropharynx and nasal membrane mucosa. NECK: Supple. No JVD. No carotid bruits. No lymph node. No thyromegaly. CHEST AND LUNGS: Bilateral symmetrical expansion. Good air exchange. No rales, no rhonchi. CARDIOVASCULAR: PMI not localized. S1 and S2. No additional sounds. ABDOMEN: Positive bowel sounds. There is slight tenderness in the right lower quadrant. No rebound tenderness or rigidity. EXTREMITIES: No cyanosis, no clubbing, no edema. CENTRAL NERVOUS SYSTEM: Alert, awake, and oriented x2. No neurological deficit could be appreciated. ASSESSMENT: 1. Diverticulitis/colitis. 2. Hypertension. 3. Peripheral vascular disease. 4. Type 2 diabetes mellitus. PLAN: Continue current IV antibiotics and antiplatelet medication, treating the peripheral vascular disease. Advance diet as tolerated and pain management as needed. The patient will need further GI workup after the inflammation would be resolved. Ney Faust MD
[2018-03-03] MEDS: metroNIDAZOLE 500mg/100ml NS 100 ML IVPB SCH ×3 (05:10→20:54)
[2018-03-03] MEDS: Ciprofloxacin 400mg/200ml D5W 400 MG/200 ML BAG IVPB SCH ×2 (05:11→17:07)
[2018-03-03] MEDS: Oxycodone/Acetaminophen 5/325 mg Tab PO PRN ×3 (06:32→19:48)
[2018-03-03] MEDS: Insulin Lispro (humaLOG) 100 Units/ml Inj SC SCH ×4 (06:33→22:21)
[2018-03-03] MEDS: Cilostazol 50 mg Tab UD PO SCH ×2 (08:25→17:06)
[2018-03-04] MEDS: metroNIDAZOLE 500mg/100ml NS 100 ML IVPB SCH ×3 (04:58→21:54)
[2018-03-04] MEDS: Ciprofloxacin 400mg/200ml D5W 400 MG/200 ML BAG IVPB SCH ×2 (05:52→17:14)
[2018-03-04] MEDS: Insulin Lispro (humaLOG) 100 Units/ml Inj SC SCH ×4 (06:52→21:55)
[2018-03-04] MEDS: Cilostazol 50 mg Tab UD PO SCH ×2 (08:14→16:37)
[2018-03-04] MEDS ORDERED: Oxycodone/Acetaminophen 5/325 mg Tab PO PRN (23:51)
[2018-03-05] MEDS: metroNIDAZOLE 500mg/100ml NS 100 ML IVPB SCH ×3 (05:36→20:37)
[2018-03-05] MEDS: Ciprofloxacin 400mg/200ml D5W 400 MG/200 ML BAG IVPB SCH ×2 (06:47→17:18)
[2018-03-05] MEDS: Insulin Lispro (humaLOG) 100 Units/ml Inj SC SCH ×4 (07:08→21:47)
--- NOTE | 2018-03-05 07:59 | PN ---
DAILY PROGRESS NOTE DATE: 03/04/2018 SUBJECTIVE: The patient is seen today, 03/04/2018. She is not in any cardiopulmonary distress and the patient's abdominal pain has improved. OBJECTIVE: VITAL SIGNS: Blood pressure 128/51, temperature 98.8, respiratory rate 20, and pulse 100. HEENT: Pupils equal and reactive to light. Normal-appearing mucosa of the conjunctivae, oropharynx, and nasal membrane mucosa. NECK: Supple. No JVD. No carotid bruit. No lymph node. No thyromegaly. CHEST AND LUNGS: Bilateral symmetrical expansion. Good air exchange. No rales. No rhonchi. CARDIOVASCULAR: PMI not localized, S1 and S2. No additional sounds. ABDOMEN: Normoactive bowel sounds. No tenderness. No organomegaly. No masses. EXTREMITIES: No cyanosis. No clubbing. No edema. CENTRAL NERVOUS SYSTEM: Alert, awake, and oriented x2 and no neurological deficit could be appreciated. ASSESSMENT: 1. Colitis/diverticulitis, which is resolving. 2. Peripheral vascular disease. 3. Type 2 diabetes mellitus. 4. Hypertension. PLAN: Continue current IV antibiotics and advance diet as tolerated and continue Accu-Cheks with insulin coverage as needed. Ney Faust MD
[2018-03-05] MEDS: Cilostazol 50 mg Tab UD PO SCH ×2 (08:41→17:20)
[2018-03-06] MEDS: metroNIDAZOLE 500mg/100ml NS 100 ML IVPB SCH ×3 (05:29→21:00)
[2018-03-06] MEDS: Ciprofloxacin 400mg/200ml D5W 400 MG/200 ML BAG IVPB SCH ×2 (06:34→17:07)
[2018-03-06] MEDS: Insulin Lispro (humaLOG) 100 Units/ml Inj SC SCH ×4 (06:40→21:33)
[2018-03-06] MEDS: Cilostazol 50 mg Tab UD PO SCH ×2 (08:25→16:23)
[2018-03-07] MEDS: metroNIDAZOLE 500mg/100ml NS 100 ML IVPB SCH ×3 (05:33→20:47)
[2018-03-07] MEDS: Ciprofloxacin 400mg/200ml D5W 400 MG/200 ML BAG IVPB SCH ×2 (06:30→17:11)
[2018-03-07] MEDS: Insulin Lispro (humaLOG) 100 Units/ml Inj SC SCH ×4 (06:44→22:52)
[2018-03-07] MEDS: Cilostazol 50 mg Tab UD PO SCH ×2 (08:26→17:12)
--- NOTE | 2018-03-07 08:38 | PN ---
DAILY PROGRESS NOTE DATE: 03/05/2018 SUBJECTIVE: The patient is seen today on 03/05/2018. She is not in any cardiopulmonary distress, abdominal pain is less, and blood sugar is elevated. PHYSICAL EXAMINATION: VITAL SIGNS: Blood pressure 134/50, temperature 98.4, respiratory rate 20, and pulse 90. HEENT: Pupils equal and reactive to light. Normal-appearing mucosa of the conjunctivae, oropharynx, and nasal membrane mucosa. NECK: Supple. No JVD. No carotid bruits. No lymph node. No thyromegaly. CHEST AND LUNGS: Bilateral symmetrical expansion. Good air exchange. No rales. No rhonchi. CARDIOVASCULAR: PMI not localized. S1 and S2. No additional sounds. ABDOMEN: Normoactive bowel sounds. No tenderness. No organomegaly. No masses. EXTREMITIES: No cyanosis. No clubbing. No edema. CENTRAL NERVOUS SYSTEM: Alert, awake, and oriented x2. No neurological deficit could be appreciated. ASSESSMENT: 1. Diverticulitis/colitis, which is resolving. 2. Type 2 diabetes mellitus uncontrolled and the patient was not on any of her antihyperglycemic medications due to n.p.o. and no regular diet was advanced until recently. 3. Peripheral vascular disease. PLAN: We will resume the patient's antihyperglycemic medications and continue the current antibiotics. Ney Faust MD
--- NOTE | 2018-03-07 22:39 | PN ---
DAILY PROGRESS NOTE DATE: 03/07/2018 SUBJECTIVE: The patient is seen today, 03/07/2018. She is feeling much better. She has one more day left for IV antibiotic course. OBJECTIVE: VITAL SIGNS: Blood pressure 149/66, temperature 98.4, respiratory rate 20, and pulse 90. HEENT: Pupils equal and reactive to light. Normal-appearing mucosa of the conjunctivae, oropharynx, and nasal membrane mucosa. NECK: Supple. No JVD. No carotid bruit. No lymph node. No thyromegaly. CHEST AND LUNGS: Bilateral symmetrical expansion. Good air exchange. No rales. No rhonchi. CARDIOVASCULAR: PMI not localized. S1 and S2. No additional sounds. ABDOMEN: Normoactive bowel sounds. No tenderness. No organomegaly. No masses. EXTREMITIES: No cyanosis. No clubbing. No edema. CENTRAL NERVOUS SYSTEM: Alert, awake, and oriented x3. No neurological deficit could be appreciated. ASSESSMENT: 1. Status post diverticulitis/colitis. 2. Hypertension. 3. Peripheral vascular disease. 4. Type 2 diabetes mellitus. PLAN: Continue current IV antibiotics for one more day. Continue Accu-Cheks with insulin coverage. $#DTPHYNAME DD: $#DTDICT $#TMDICT([facility]:mm:ss) DT: $#DTTRAN $#TMTRAN([facility]:mm:ss) Job # $#DOCID
[2018-03-08] MEDS: metroNIDAZOLE 500mg/100ml NS 100 ML IVPB SCH ×2 (05:28→12:22)
[2018-03-08] MEDS: Ciprofloxacin 400mg/200ml D5W 400 MG/200 ML BAG IVPB SCH (06:38)
[2018-03-08] MEDS: Insulin Lispro (humaLOG) 100 Units/ml Inj SC SCH ×2 (06:39→12:23)
[2018-03-08] MEDS: Cilostazol 50 mg Tab UD PO SCH (08:43)
[2018-03-08 08:47] VITALS: BP 129/77; PULSE 96
[2018-03-08 09:15] VITALS: TEMP 98.4; O2SAT 97
--- NOTE | 2018-03-09 03:31 | DS ---
REASON FOR ADMISSION: This is a 73-year-old female who was admitted to Transitional Care Unit for deconditioning and completing the course of IV antibiotics. COURSE OF HOSPITALIZATION: The patient continued on IV antibiotics both Cipro and Flagyl. Abdominal pain was decreasing. The patient was cooperative to physical therapy and occupational therapy. The patient was continued on oral medications and after she started to eat regular diet. Antihyperglycemic medications were reintroduced. The patient did well and she was discharged home to continue the preadmission medications and to follow with gastroenterology as well as her primary care physician. FINAL DIAGNOSES: 1. Colitis/diverticulitis. 2. Type 2 diabetes mellitus. 3. Hypertension. 4. Peripheral vascular disease. [facility] MD Govind
== END 2018-03-08 13:00 | disposition home health service (06) | DRG 392 ==
LOC: H.TCU 23:12
PROVIDERS: ADMIT Internal Medicine; ATTEND Internal Medicine
PROC: 3E03329 Introduction of Other Anti-infective into Peripheral Vein, Percutaneous Approach (ICD-10-PCS; principal; 2018-02-28)
PROC: F08Z4FZ Home Management Treatment using Assistive, Adaptive, Supportive or Protective Equipment (ICD-10-PCS; 2018-02-28)
PROC: F07M6FZ Therapeutic Exercise Treatment of Musculoskeletal System - Whole Body using Assistive, Adaptive, Supportive or Protective Equipment (ICD-10-PCS; 2018-02-28)
DX: K52.9 Noninfective gastroenteritis and colitis, unspecified (principal); E11.51 Type 2 diabetes mellitus with diabetic peripheral angiopathy without gangrene; I10 Essential (primary) hypertension

== ENCOUNTER 2018-10-26 15:38 | Inpatient (IN) | payer MEDICARE ==
[2018-10-26 21:38] VITALS: BMI 24.1
[2018-10-26 22:05] VITALS: RESP 20
[2018-10-26] MEDS: Oxycodone/Acetaminophen 5/325 mg Tab PO PRN (23:22)
[2018-10-27] MEDS ORDERED: Dextrose 50% SYRINGE Inj (50 ml) IVP PRN (02:02)
[2018-10-27] MEDS ORDERED: Glucagon Recombinant 1 mg Inj IM PRN (02:08)
[2018-10-27] MEDS ORDERED: Vitamins A & D Oint UD Foilpak TOP SCH (02:30)
[2018-10-27] MEDS: Oxycodone/Acetaminophen 5/325 mg Tab PO PRN ×2 (05:37→11:00)
[2018-10-27] MEDS: Insulin Lispro (humaLOG) 100 Units/ml Inj SC SCH ×4 (08:01→21:30)
[2018-10-27] MEDS ORDERED: Enoxaparin 40 mg Syringe SC SCH (09:00)
[2018-10-27] MEDS ORDERED: Patient's Own Med (Multivit-Min/Fa/Lycopen/Lutein [Centrum Silver Tablet] 1 TAB) PO SCH (09:00)
[2018-10-27] MEDS: Pantoprazole 40 mg EC Tab PO SCH ×2 (09:44→21:31)
[2018-10-27] MEDS: Multivitamin With Minerals Tab PO SCH (09:44)
[2018-10-27] MEDS: Cilostazol 50 mg Tab UD PO SCH (16:56)
[2018-10-27 19:40] VITALS: O2SAT 99
[2018-10-27] MEDS ORDERED: Patient's Own Med (Simvastatin [Simvastatin] 20 MG) PO SCH (22:00)
[2018-10-28] MEDS: Oxycodone/Acetaminophen 5/325 mg Tab PO PRN ×3 (01:41→14:40)
--- NOTE | 2018-10-28 03:02 | HP ---
HISTORY OF PRESENT ILLNESS: This is a 73-year-old -[place] female with history of multiple medical problems, recently had laparotomy for appendectomy and lysis of abdominal adhesions, was admitted to transitional care unit for deconditioning and rehabilitation postoperatively. The patient denied to have any shortness of breath or chest pain. No nausea or vomiting. REVIEW OF SYSTEMS: Other review of systems is negative except for generalized weakness and unsteadiness. ALLERGIES: POSITIVE FOR PENICILLIN AND SULFA. PAST MEDICAL HISTORY: Positive for hypertension, type 2 diabetes mellitus, peripheral vascular disease, hypercholesterolemia, smoking, and chronic obstructive pulmonary disease. SOCIAL HISTORY: Smoker for 30 pack years, no EtOH or substance abuse. FAMILY HISTORY: Not contributory. PHYSICAL EXAMINATION: GENERAL: The patient is not in any cardiopulmonary distress at the time of this examination. VITAL SIGNS: Blood pressure 137/61, temperature 98.3, pulse 90, and respiratory rate 20. HEENT: Pupils equal, reactive to light. Normal-appearing mucosa of the conjunctivae, oropharynx and nasal membrane mucosa. NECK: Supple. No JVD. No carotid bruit. No lymph node. No thyromegaly. CHEST AND LUNGS: Bilateral symmetrical expansion. Few scattered rhonchi. CARDIOVASCULAR SYSTEM: PMI not localized. S1, S2. No additional sounds. ABDOMEN: Normoactive bowel sounds. No tenderness. No organomegaly. No masses. EXTREMITIES: No cyanosis, no clubbing, no edema. CENTRAL NERVOUS SYSTEM: Alert, awake, oriented x2. No neurological deficit could be appreciated. ASSESSMENT: Subacute rehabilitation, status post laparotomy for appendectomy and lysis of intraabdominal adhesions, hypertension, type 2 diabetes mellitus, peripheral vascular disease. PLAN: Continue current medications. Accu-Cheks with insulin coverage. Physical therapy, occupational therapy. [facility] MD Govind
[2018-10-28] MEDS: Insulin Lispro (humaLOG) 100 Units/ml Inj SC SCH ×2 (08:41→12:52)
[2018-10-28] MEDS: Multivitamin With Minerals Tab PO SCH (08:42)
[2018-10-28] MEDS: Pantoprazole 40 mg EC Tab PO SCH (08:42)
[2018-10-28] MEDS: Cilostazol 50 mg Tab UD PO SCH (08:42)
[2018-10-28 08:44] VITALS: PULSE 102
[2018-10-28 10:25] VITALS: BP 129/64; TEMP 98.9
--- NOTE | 2018-10-31 07:28 | DS ---
REASON FOR ADMISSION: This is a 73-year-old female with history of multiple medical problems with recent laparotomy, surgery for appendectomy, was in transitional care unit for deconditioning and rehabilitation. COURSE OF HOSPITALIZATION: The patient was in transitional care unit, and she was on physical therapy. The patient was resumed on all her medications. The patient was complaining of abdominal pain that was not relieved by Tylenol, neither Percocet. The patient was brought to emergency room for evaluation, where she was found to have collection at the igiugig site with possible abdominal wall abscess. FINAL DIAGNOSES: 1. Status post laparotomy for appendectomy and lysis of adhesions with possible postoperative abdominal wall abscess. 2. Hypertension. 3. Type 2 diabetes mellitus. 4. Peripheral vascular disease. [facility] MD Govind
== END 2018-10-28 16:26 | disposition home or self-care (01) | DRG 950 ==
LOC: H.TCU 21:39
PROVIDERS: ADMIT Internal Medicine; ATTEND Internal Medicine
PROC: F07Z9FZ Gait Training/Functional Ambulation Treatment using Assistive, Adaptive, Supportive or Protective Equipment (ICD-10-PCS; principal; 2018-10-26)
PROC: F08Z4FZ Home Management Treatment using Assistive, Adaptive, Supportive or Protective Equipment (ICD-10-PCS; 2018-10-26)
PROC: F07M6FZ Therapeutic Exercise Treatment of Musculoskeletal System - Whole Body using Assistive, Adaptive, Supportive or Protective Equipment (ICD-10-PCS; 2018-10-26)
DX: Z48.815 Encounter for surgical aftercare following surgery on the digestive system (principal); Z98.890 Other specified postprocedural states; Z90.49 Acquired absence of other specified parts of digestive tract; E11.51 Type 2 diabetes mellitus with diabetic peripheral angiopathy without gangrene; I10 Essential (primary) hypertension; E78.00 Pure hypercholesterolemia, unspecified; J44.9 Chronic obstructive pulmonary disease, unspecified; F17.210 Nicotine dependence, cigarettes, uncomplicated; Z88.0 Allergy status to penicillin; Z88.2 Allergy status to sulfonamides

== ENCOUNTER 2018-10-28 16:22 | Emergency (ER) | payer MEDICARE ==
[2018-10-28 16:22] VITALS: BMI 22.5
[2018-10-28] MEDS ORDERED: Iohexol 240 (50 ml) PO STA (16:52)
[2018-10-28] MEDS ORDERED: Sodium Chloride 0.9% 500 ML IV STA (16:56)
--- NOTE | 2018-10-28 17:41 | ED PDOC ---
HPI: Abdomen Time Seen by Provider: 10/28/18 16:26 Chief Complaint (Nursing): Abdominal Pain Chief Complaint (Provider): Abdominal Pain History Per: Patient History/Exam Limitations: no limitations Onset/Duration Of Symptoms: Days Outside of [place] travel?: No Current Symptoms Are (Timing): Still Present Context: Other (S/P Appendectomy) Associated Symptoms: Vomiting Alleviating Factors: None Last Bowel Movement: Today Additional Complaint(s): 73 y/o female with multiple comorbidities presents to the ED for evaluation of abdominal pain s/p open appendectomy on October 14, 2018. Patient is undergoing acute rehab in the TCU reporting of increased pain to the operated site associated with non-bloody, non-bilious vomiting. Patient states pain has been present since the surgery but was not this severe at onset. Patient reports of having dark stool and a bowel movement today. Patient additionally states pain is associated with nausea and a loss of appetite. Otherwise, patient denies diarrhea, chest pain and shortness of breath. PMD: Ney Faust Surgeon: Dr. Gaytan at [facility]. Past Medical History Reviewed: Historical Data, Nursing Documentation, Vital Signs - Medical History PMH: Anxiety, Arthritis, Asthma, Bronchitis, COPD, Diabetes, Diverticulitis, Fractures (RT.FOOT/CASTED NO OR), HTN, Hypercholesterolemia, Osteoporosis, Pneumonia Denies: HIV, Chronic Kidney Disease - Surgical History Surgical History: Appendectomy (ON 10/14/2018), Endoscopy - Family History Family History: States: Unknown Family Hx - Immunization History Hx Tetanus Toxoid Vaccination: No Hx Influenza Vaccination: Yes (2018) Hx Pneumococcal Vaccination: Yes - Home Medications Home Medications: Ambulatory Orders Medication Instructions Recorded RX: Cilostazol [Pletal] 50 mg PO BID 01/05/17 RX: Clopidogrel [Plavix] 75 mg PO DAILY 01/05/17 RX: Multivit-Min/FA/Lycopen/Lutein 1 tab PO DAILY 11/12/17 [Centrum Silver Tablet] RX: GlipiZIDE [Glucotrol] 10 mg PO BID 01/19/18 RX: metFORMIN [glucOPHAGE] 500 mg PO BID 01/19/18 RX: oxyCODONE/Acetaminophen 1 tab PO Q6H PRN tab 02/28/18 [Percocet 5/325 mg Tab] RX: Docusate [Colace] 100 mg PO BID cap 10/26/18 RX: Metoprolol Tartrate [Lopressor] 12.5 mg PO BID tab 10/26/18 Aspirin [Ecotrin] 81 mg PO DAILY 10/28/18 Furosemide [Lasix] 20 mg PO DAILY 10/28/18 Ondansetron ODT [Zofran ODT] 4 mg PO Q8 PRN 10/28/18 Pantoprazole Sodium [Protonix] 40 mg PO Q12 10/28/18 RX: Atorvastatin [Lipitor] 10 mg PO HS 10/28/18 SITagliptin [Januvia] 50 mg PO DAILY 10/28/18 Sennosides [Senokot] 8.6 mg PO HS 10/28/18 - Allergies Allergies/Adverse Reactions: Allergies Allergy/AdvReac Type Severity Reaction Status Date / Time Penicillins Allergy Intermediate SWELLING Verified 10/28/18 16:32 Sulfa (Sulfonamide Allergy Intermediate RASH Verified 10/28/18 16:32 Antibiotics) tomato AdvReac Intermediate GI UPSET Verified 10/28/18 16:32 Review of Systems ROS Statement: Except As Marked, All Systems Reviewed And Found Negative (as per HPI) Cardiovascular: Negative for: Chest Pain Respiratory: Negative for: Shortness of Breath Gastrointestinal: Positive for: Nausea, Vomiting, Abdominal Pain, Other (dark stool and a loss of appetite). Negative for: Diarrhea Physical Exam - Reviewed Nursing Documentation Reviewed: Yes Vital Signs Reviewed: Yes - Physical Exam Appears: Positive for: In Acute Distress (mild, painful) Head Exam: Positive for: ATRAUMATIC, NORMOCEPHALIC Skin: Positive for: Warm, Dry Eye Exam: Positive for: EOMI, PERRL Neck: Positive for: Painless ROM, Supple Cardiovascular/Chest: Positive for: Murmur, Tachycardia Respiratory: Positive for: Normal Breath Sounds. Negative for: Respiratory Distress Gastrointestinal/Abdominal: Positive for: Soft, Tenderness (Tenderness to palpation at the site as well as the lower abdomen. ), Other (large midline ventral surgical scar in place. Umbilical area of the scar with yellowish discharge from the wound. No erythema. No dehiscence). Negative for: Mass, Distended, Guarding, Rebound Back: Positive for: Normal Inspection. Negative for: Decreased ROM Extremity: Positive for: Normal ROM. Negative for: Deformity Lymphatic: Negative for: Adenopathy Neurologic/Psych: Positive for: Alert. Negative for: Motor/Sensory Deficits - Laboratory Results Result Diagrams: 10/28/18 17:35 10/28/18 17:35 Medical Decision Making Medical Decision Making: Time: 1655 Impression: Abdominal pain s/p appendectomy 2 weeks ago Differentials include but not limited to wound infection, inter-abdominal abscess, pancreatitis, colitis, viral illness and sepsis. Plan: -- Type and Screen -- VBG -- CMP -- Lipase -- CBC with Differentials -- PTT -- Prothrombin Time -- Morphine 4 mg IVP -- Sodium Chloride IV 500 mls/hr -- Iohexol 50 mL PO -- Zofran 8 mg IV -- Blood Culture -- Urine Culture -- IV Insertion -- Glucose, Blood, POC -- Urinalysis -- CT Abd/Pelvis w/ PO & IV Contrast -- Discussed with Dr. Arellano, rn surgical who advises CT with oral and IV contrast for further evaluation. Time: 1819 -- Labs demonstrate elevated lactic acid and leukocytosis. IV antibiotics initiated for possible sepsis. -- Cipro 400 mg/200ml D5W IV -- Vancomycin Inj 1 gm Sodium Chloride 0.9% 250 ml IV [address] Faust PMD. Pt will be hospitalized under his service. Time: 2329 --CT ABD/pelvis FINDINGS: LUNG BASES: There is a right pleural effusion which is small with adjacent atelectatic changes. The left thoracic cavity demonstrates a tiny pleural effusion. LIVER: Unremarkable. GALLBLADDER AND BILE DUCTS: The gallbladder appears within normal limits. No radioopaque gallstones are seen. No biliary ductal dilatation is evident. PANCREAS: Unremarkable. SPLEEN: Unremarkable. ADRENAL GLANDS: Unremarkable. KIDNEYS, URETERS, AND BLADDER: There are bilateral renal calcifications, the majority of which appear to be vascular in origin. Cannot rule out nephrolithiasis. There is no urinary tract obstruction although there is a prominent left extrarenal pelvis. There is a tiny right renal cortical cysts. STOMACH AND BOWEL: The cecum appears thickened. APPENDIX: The appendix is not visualized with certainty. PERITONEUM: There is a 5. Centimeter diameter possibly loculated fluid collection in the cul-de-sac. The patient is status post hysterectomy. LYMPH NODES: No lymphadenopathy is evident. VASCULATURE: No evidence of abdominal aortic aneurysm. BONES: No aggressive appearing osseous lesion. No acute osseous pathology evident. MISCELLANEOUS: Intestinal pattern is nonobstructive. The patient appears to be status post midline incision with skin ree. IMPRESSION: 1. There is a 5. Centimeter diameter possibly loculated fluid collection in the cul-de-sac. The patient is status post hysterectomy. 2. The appendix is not visualized with certainty. 3. Intestinal pattern is nonobstructive. 4. The cecum appears thickened. 5. There are bilateral renal calcifications, the majority of which appear to be vascular in origin. Cannot rule out nephrolithiasis. There is no urinary tract obstruction although there is a prominent left extrarenal pelvis. There is a tiny right renal cortical cysts. 6. The patient appears to be status post midline incision with skin ree. 7. There is a right pleural effusion which is small with adjacent atelectatic changes. 8. The left thoracic cavity demonstrates a tiny pleural effusion. 9. 5 cm diameter fluid collection possibly loculated to 1 cavity in the cul-de-sac. See above. Time: 2339 --DW Dr Lennon rn surgical. He spoke with Dr. Gaytan, primary surgeon for appendectomy 10/14, who recommends transfer to [facility]. --[facility] who accepts pt for transfer and admission to [facility] through ER. --DW pt and pt's granddaugter on phone findings and plan of care Time: 34 --Case discussed with Dr. Bob who accepts patient for ER-to-ER transfer. Scribe Attestation: Documented by Inge Fairchild, acting as a scribe for Dorina Donovan MD. Provider Scribe Attestation: All medical record entries made by the Scribe were at my direction and personally dictated by me. I have reviewed the chart and agree that the record accurately reflects my personal performance of the history, physical exam, medical decision making, and the department course for this patient. I have also personally directed, reviewed, and agree with the discharge instructions and disposition. Disposition - Clinical Impression Clinical Impression: Abdominal pain Counseled Patient/Family Regarding: Studies Performed, Diagnosis - Disposition Disposition: Other Institution Disposition Time: 00:30 Condition: FAIR
[2018-10-28 17:52] LABS: VENOUS BLOOD GAS BASE EXCESS 5.2 mmol/L (0.0-2.0); VENOUS BLOOD GAS PCO2 39 mmHg (40-60); VENOUS BLOOD GAS PO2 31 mm/Hg (30-55); VENOUS BLOOD PH 7.48 (7.32-7.43)
[2018-10-28 17:54] LABS: INR 1.2; PROTHROMBIN TIME 13.2 Seconds (9.8-13.1)
[2018-10-28 17:57] LABS: PARTIAL THROMBOPLASTIN TIME 26.6 Seconds (25.6-37.1)
[2018-10-28 17:58] LABS: ALB/GLOB RATIO 1.1 (1.0-2.1); ALBUMIN 3.3 g/dL (3.5-5.0); ALT/SGPT 14 U/L (9-52); AST/SGOT 38 U/L (14-36); BASO # 0.1 K/uL (0.0-0.2); BASO % 0.5 % (0.0-2.0); BLOOD UREA NITROGEN 14 mg/dl (7-17); CALCIUM 9.5 mg/dL (8.4-10.2); EOS # 0.1 K/uL (0.0-0.7); EOS % 0.6 % (0.0-4.0); GFR NON-AFRICAN AMERICAN > 60; HEMOGLOBIN 9.4 g/dL (12.0-16.0); LIPASE 175 U/L (23-300); LYMPH # 0.9 K/uL (1.0-4.3); LYMPH % 5.6 % (20.0-40.0); MEAN CELL VOLUME 92.6 fl (81.0-99.0); MEAN CORPUSCULAR HEMOGLOBIN 29.7 pg (27.0-31.0); MEAN CORPUSCULAR HGB CONC 32.1 g/dL (33.0-37.0); MEAN PLATELET VOLUME 8.4 fl (7.2-11.7); MONO # 1.2 K/uL (0.0-0.8); NEUT # 13.1 K/uL (1.8-7.0); NEUT % 85.3 % (50.0-75.0); NRBC % 0.2 % (0.0-0.0); PLATELET COUNT 395 K/uL (130-400); RBC 3.17 Mil/uL (3.80-5.20); RED CELL DISTRIBUTION WIDTH 16.8 % (11.5-14.5); WHITE BLOOD COUNT 15.3 K/uL (4.8-10.8)
[2018-10-28] MEDS ORDERED: Sodium Chloride 0.9% 50 ML IV ONE (18:06)
[2018-10-28] MEDS ORDERED: Iohexol 300 100 ML IJ ONE (18:06)
[2018-10-28] MEDS ORDERED: Morphine 4 MG/ML VIAL ONE (18:13)
[2018-10-28] MEDS ORDERED: Iohexol 240 (50 ml) ONE (18:14)
[2018-10-28] MEDS ORDERED: Ciprofloxacin 400mg/200ml D5W 400 MG/200 ML BAG IV STA (18:20)
[2018-10-28] MEDS ORDERED: Ciprofloxacin 400mg/200ml D5W 400 MG/200 ML BAG IVPB ONE (19:03)
[2018-10-28 19:53] LABS: ANISOCYTOSIS SLIGHT; EOSINOPHIL 1 % (0-7); HYPOCHROMIC SLIGHT; LYMPHOCYTE 5 % (20-50); MONOCYTE 10 % (0-10); NEUTROPHIL 83 % (42-75); PLASMACYTES 1 (0-0); PLATELET ESTIMATE NORMAL (NORMAL); TOTAL CELLS COUNTED 100
[2018-10-28 19:54] LABS: TEARDROP CELLS SLIGHT
[2018-10-28 19:56] LABS: SQUAMOUS EPITHIAL 13 /hpf (0-5); URINE BACTERIA FEW (<OCC); URINE BILIRUBIN NEGATIVE (NEGATIVE); URINE BLOOD SMALL (NEGATIVE); URINE COLOR YELLOW (YELLOW); URINE GLUCOSE (UA) NEG (NEGATIVE); URINE HYALINE CAST 0-2 /hpf (0-2); URINE LEUKOCYTE ESTERASE NEG Leu/uL (Negative); URINE PROTEIN 100 mg/dL (NEGATIVE); URINE UROBILINOGEN 0.2-1.0 mg/dL (0.2-1.0)
[2018-10-28 20:09] LABS: URINE CLARITY SLIGHT-CLOUDY (Clear)
[2018-10-28] MEDS ORDERED: Vancomycin 1 g Inj ONE (20:30)
[2018-10-29] MEDS ORDERED: Sodium Chloride 0.9% 500 ML IV STA (00:12)
[2018-10-29] MEDS ORDERED: Sodium Chloride 0.9% 1,000 ML IV STA (00:13)
[2018-10-29] MEDS ORDERED: Morphine 4 MG/ML VIAL ONE (00:17)
[2018-10-29 03:38] VITALS: BP 123/53; PULSE 104; RESP 18; TEMP 98.5; O2SAT 99
--- NOTE | 2018-10-29 19:14 | CT ---
Date of service: 10/28/2018 PROCEDURE: CT Abdomen and Pelvis with contrast HISTORY: Abdominal pain post appendectomy 10/14 COMPARISON: Comparison made with prior CT scan abdomen pelvis dated 10/17/2018. TECHNIQUE: Contiguous helical/transaxial sections of the abdomen and pelvis performed in standard fashion following oral and intravenous injection of approximately 90 cc Omnipaque 300 contrast material. Additional 2D sagittal and coronal reformats. Radiation dose: Total exam DLP = 365.03 mGy-cm. This CT exam was performed using one or more of the following dose reduction techniques: Automated exposure control, adjustment of the mA and/or kV according to patient size, and/or use of iterative reconstruction technique. FINDINGS: LOWER THORAX: There is a small right-sided effusion with patchy airspace disease (atelectasis and/or infiltrates) in the right lung base mild passive/dependent type atelectasis also present. Questionable trace left effusion... Minimal atelectasis and scarring changes left lung base with minimal linear scarring in the lingular and middle lobe regions. Heart remains enlarged. Small hiatal hernia LIVER: Liver exhibits normal size. Mild fatty hepatic infiltration. Unremarkable. No gross lesion or ductal dilatation. GALLBLADDER AND BILE DUCTS: No evidence of intraluminal gallbladder calculi PANCREAS: Pancreas slightly atrophic and fatty replaced. No gross oss lesion or ductal dilatation. SPLEEN: Stable appearing mixed attenuation lesion within the splenic parenchyma associate with tiny calcification. ADRENALS: Left adrenal nodule measuring approximately 16 mm a. Slightly nodular appearing right adrenal gland KIDNEYS AND URETERS: Kidneys demonstrate relatively symmetric nephrograms. Vascular calcifications present both renal hilar regions. . VASCULATURE: Unremarkable. No aortic aneurysm. Mild-moderate aortic atherosclerotic calcification or mural plaque present.. Femoral-femoral jump graft unchanged. BOWEL: Evaluation of the bowel is somewhat limited due to incomplete opacification. The stomach is incompletely distended which presumably in part accounts for thick-walled appearance however rugal folds are prominent on the possibility of underlying gastritis not excluded. Visualized loops of small bowel exhibit relatively normal contour and caliber. No evidence of acute mechanical small bowel obstruction.. There appears to be wall thickening of the cecum possibly postinflammatory in nature.. Scattered colonic diverticula again noted. APPENDIX: Appendectomy changes. PERITONEUM: Previously noted large amount of pelvic fluid a appears have undergone loculation measuring approximately 6.6 x 5.8 x 5.3 cm. Postsurgical changes anterior abdominal wall with in situ skin closure ree again noted LYMPH NODES: Unremarkable. No enlarged lymph nodes. BLADDER: Urinary bladder is physiologically distended. No evidence of intraluminal urinary bladder calculi. REPRODUCTIVE: Hysterectomy. BONES: Multilevel degenerative spondylosis of the thoracic and lumbar spine OTHER FINDINGS: None. IMPRESSION: Previously noted large amount of pelvic fluid has undergone loculation now measuring approximately 6.6 cm in greatest dimension. Wall thickening of the cecum likely postinflammatory in nature. Stable appearing splenic lesion. Mild fatty hepatic infiltration. Left adrenal nodule. Nodular appearing right adrenal gland. Hysterectomy. Small right-sided effusion and right atelectasis with trace left effusion. Changes have improved from prior exam.
== END 2018-10-29 03:38 | disposition short-term general hospital (02) ==
LOC: H.ER 16:22 → H.ERHOLD 10-29 00:03 → UNDOADMIN 10-29 00:03 → UNDODISIN 10-29 03:38
DX: R10.9 Unspecified abdominal pain (principal); F41.9 Anxiety disorder, unspecified; M19.90 Unspecified osteoarthritis, unspecified site; J44.9 Chronic obstructive pulmonary disease, unspecified; E11.9 Type 2 diabetes mellitus without complications; I10 Essential (primary) hypertension; E78.00 Pure hypercholesterolemia, unspecified; M81.0 Age-related osteoporosis without current pathological fracture; Z79.84 Long term (current) use of oral hypoglycemic drugs; Z79.02 Long term (current) use of antithrombotics/antiplatelets; Z79.82 Long term (current) use of aspirin; Z88.0 Allergy status to penicillin; Z88.2 Allergy status to sulfonamides
CPT/HCPCS: 74177; 80053; 81003; 82803; 82948; 83690; 85025; 85610; 85730; 86850; 86900; 87040; 87070; 87086; 96361; 96365; 96366; 96375; 96376; 99285; J0744; J2270; J2405; J7030; Q9966; Q9967

== ENCOUNTER 2018-11-07 16:42 | Inpatient (IN) | payer MEDICARE ==
[2018-11-07 17:14] VITALS: BMI 24.3
[2018-11-07] MEDS: Oxycodone/Acetaminophen 5/325 mg Tab PO PRN (20:31)
--- NOTE | 2018-11-07 20:42 | CP.PCM.HP ---
History of Present Illness - History of Present Illness History of Present Illness: Attending Provider: Ney Faust MD Chief Complaint: Abdominal pain The Patient was seen and examined in the TCU HPI: The hx is obtained from the patient and after review of the medical records. This is a 73 years old Female transferred here at the [facility] and continued care. She had an Open Appendectomy on 10/14/18 at [facility] and was discharged to the [facility] on the 10/26/18. She complained of worsening abdominal pain and was returned to [facility] on 10/29/[address] guided drainage of the pelvic Hematoma on 10/31/18. culture of the drained fluid chowed no growth. The draines were removed along with alternate ree from the surgical wound on the abdomen. She was treated with Flagyl and Cipro. PMH: Anxiety, Arthritis, Asthma, Bronchitis, COPD, CAD, PVD, Diabetes, HTN, HLD, Osteoporosis PSH: umbilical hernia, hysterectomy, partial colectomy, L to R fem bypass, open appendectomy SH: Former tobacco use, No EtOH or drug use. FH: noncontributory Allergy: PCN, sulfa Meds: Reviewed Present on Admission - Present on Admission Any Indicators Present on Admission: No History of DVT/PE: No History of Uncontrolled Diabetes: No Urinary Catheter: No Decubitus Ulcer Present: No Review of Systems - Constitutional Constitutional: Headache. absent: Anorexia, Chills, Fever - EENT Eyes: Requires Corrective Lenses. absent: Blurred Vision, Diplopia, Floaters Ears: absent: Ear Discharge, Tinnitus, Disequilibrium Nose/Mouth/Throat: absent: Epistaxis, Nasal Congestion, Sinus Pain, Sinus Pressure - Cardiovascular Cardiovascular: Edema, Leg Edema. absent: Chest Pain, Orthopnea - Respiratory Respiratory: absent: Cough, Wheezing, Stridor - Gastrointestinal Gastrointestinal: Abdominal Pain. absent: Constipation, Diarrhea, Nausea, Vomiting - Genitourinary Genitourinary: absent: Dysuria, Flank Pain, Urinary Frequency - Musculoskeletal Musculoskeletal: absent: Arthralgias, Back Pain - Integumentary Integumentary: absent: Pruritus, Rash, Skin Ulcer, Sores, Striae - Neurological Neurological: Headaches. absent: Confusion, Dizziness, Focal Weakness, Weakness - Psychiatric Psychiatric: Anxiety. absent: Confusion, Depression - Endocrine Endocrine: absent: Palpitations, Polydipsia, Polyphagia, Polyuria - Hematologic/Lymphatic Hematologic: absent: Easy Bleeding, Easy Bruising Past Patient History - Infectious Disease Hx of Infectious Diseases: None - Past Medical History & Family History Past Medical History?: Yes - Past Social History Smoking Status: Former Smoker Chewing Tobacco Use: No Cigar Use: No Alcohol: None Drugs: Denies, Inhalants Home Situation {Lives}: With Family - CARDIAC Hx Hypercholesterolemia: Yes Hx Hypertension: Yes - PULMONARY Hx Chronic Obstructive Pulmonary Disease (COPD): Yes - NEUROLOGICAL Hx Neurological Disorder: No - HEENT Hx HEENT Problems: Yes Other/Comment: WEAR GLASSES - RENAL Hx Chronic Kidney Disease: No - ENDOCRINE/METABOLIC Hx Diabetes Mellitus Type 2: Yes - HEMATOLOGICAL/ONCOLOGICAL Hx AIDS: No Hx Human Immunodeficiency Virus (HIV): No - INTEGUMENTARY Hx Dermatological Problems: No - MUSCULOSKELETAL/RHEUMATOLOGICAL Hx Falls: Yes - GASTROINTESTINAL Hx Diverticulitis: Yes - GENITOURINARY/GYNECOLOGICAL Hx Genitourinary Disorders: No - PSYCHIATRIC Hx Substance Use: No - SURGICAL HISTORY Hx Appendectomy: Yes (ON 10/14/2018) Hx Breast Biopsy: Yes (Right) Hx Herniorrhaphy: Yes (Umbilical) Hx Hysterectomy: Yes Hx Tubal Ligation: Yes Other/Comment: Partial Colectomy. Left and Right Femoral bipass. bilateral Bunionectomy - ANESTHESIA Hx Anesthesia: Yes Hx Anesthesia Reactions: No (Pateint denies) Hx Malignant Hyperthermia: No Meds Allergies/Adverse Reactions: Allergies Allergy/AdvReac Type Severity Reaction Status Date / Time Penicillins Allergy Intermediate SWELLING Verified 11/07/18 16:44 Sulfa (Sulfonamide Allergy Intermediate RASH Verified 11/07/18 16:44 Antibiotics) tomato AdvReac Intermediate GI UPSET Verified 11/07/18 16:44 Physical Exam - Constitutional Appears: No Acute Distress - Head Exam Head Exam: ATRAUMATIC, NORMAL INSPECTION, NORMOCEPHALIC - Eye Exam Eye Exam: EOMI, Normal appearance Pupil Exam: NORMAL ACCOMODATION, PERRL - ENT Exam ENT Exam: Mucous Membranes Moist, Normal Exam, Normal External Ear Exam - Neck Exam Neck exam: Positive for: Full Rom, Normal Inspection. Negative for: Lymphadenopathy, Tenderness - Respiratory Exam Respiratory Exam: Clear to Auscultation Bilateral. absent: Rales, Rhonchi, Wheezes - Cardiovascular Exam Cardiovascular Exam: REGULAR RHYTHM, RRR, +S1, +S2. absent: Gallop - GI/Abdominal Exam Additional comments: Flat, Midline surgical wound clean and dry with with Ree in place. Positive bowel sounds, Mild Post surgical abdominal tenderness Abdomen soft, no guarding, no rebound tenderness - Rectal Exam Rectal Exam: Deferred - Extremities Exam Extremities exam: Positive for: full ROM, normal inspection, pedal edema. Negative for: calf tenderness Additional comments: Edema 1+ to both feet - Back Exam Back exam: NORMAL INSPECTION. absent: CVA tenderness (L), CVA tenderness (R) - Neurological Exam Neurological exam: Alert, CN II-XII Intact, Oriented x3, Reflexes Normal - Psychiatric Exam Psychiatric exam: Normal Affect, Normal Mood - Skin Skin Exam: Dry, Intact, Normal Color, Warm Results - Vital Signs Recent Vital Signs: Last Vital Signs Temp Pulse 93 H 11/07/18 17:33 Resp 19 11/07/18 17:33 BP Pulse Ox 96 11/07/18 17:33 Assessment & Plan - Assessment and Plan (Free Text) Assessment: #. Abdominal Pain #. Hematoma Collection in pelvis #. DM II #. COPD stable #. PVD Plan: 73 years old Female transferred here at the [facility] and continued care. She had an Open Appendectomy on 10/14/18 at [facility] and was discharged to the [facility], then returned to [facility] on 10/29/[address] guided drainage of the pelvic Hematoma on 10/31/18. #. Abdominal Pain s/p Open Appendectomy and Hematoma in the pelvis - Hematoma Drained at [facility] - Wound Care - Pain management - Continue Antibiotics Ciproifloxacin and Metrodiazole until 11/08/18 - OT/PT - Follow up with Surgery in one week #. DM II - Jenuvia - Metformin - Glyburide - Lispro sliding scale according to accucheck #. PVD - ASA - Plavix - lipitor - Cilostazole #. DVT prophylaxis with Lovenox #. Code Status: Full Kelton Wright MD - Date & Time Date: 11/07/18 Time: 20:42
[2018-11-07] MEDS: Pantoprazole 40 mg EC Tab PO SCH (21:35)
[2018-11-07] MEDS: Insulin Lispro (humaLOG) 100 Units/ml Inj SC SCH (22:02)
[2018-11-08] MEDS: Oxycodone/Acetaminophen 5/325 mg Tab PO PRN ×3 (03:57→19:53)
[2018-11-08] MEDS: Insulin Lispro (humaLOG) 100 Units/ml Inj SC SCH ×4 (06:33→21:18)
[2018-11-08 06:59] LABS: BASO # 0.1 K/uL (0.0-0.2); BASO % 1.1 % (0.0-2.0); EOS # 0.2 K/uL (0.0-0.7); EOS % 2.6 % (0.0-4.0); HEMOGLOBIN 10.5 g/dL (12.0-16.0); INR 1.1; LYMPH # 1.1 K/uL (1.0-4.3); LYMPH % 14.2 % (20.0-40.0); MEAN CELL VOLUME 90.5 fl (81.0-99.0); MEAN CORPUSCULAR HEMOGLOBIN 29.1 pg (27.0-31.0); MEAN CORPUSCULAR HGB CONC 32.1 g/dL (33.0-37.0); MEAN PLATELET VOLUME 8.7 fl (7.2-11.7); MONO % 12.6 % (0.0-10.0); NEUT # 5.3 K/uL (1.8-7.0); NEUT % 69.5 % (50.0-75.0); NRBC % 0.2 % (0.0-0.0); PROTHROMBIN TIME 12.3 Seconds (9.8-13.1); RBC 3.62 Mil/uL (3.80-5.20); RED CELL DISTRIBUTION WIDTH 15.8 % (11.5-14.5); WHITE BLOOD COUNT 7.6 K/uL (4.8-10.8)
[2018-11-08 07:01] LABS: PARTIAL THROMBOPLASTIN TIME 25.7 Seconds (25.6-37.1)
[2018-11-08 07:35] LABS: BLOOD UREA NITROGEN 9 mg/dl (7-17); CALCIUM 9.4 mg/dL (8.4-10.2); GFR NON-AFRICAN AMERICAN > 60
[2018-11-08] MEDS: Pantoprazole 40 mg EC Tab PO SCH ×2 (08:52→20:10)
[2018-11-08] MEDS: Cilostazol 50 mg Tab UD PO SCH ×2 (08:52→16:52)
[2018-11-08] MEDS: Multivitamin With Minerals Tab PO SCH (08:53)
[2018-11-08] MEDS ORDERED: Enoxaparin 40 mg Syringe SC SCH (09:00)
[2018-11-08] MEDS ORDERED: Albuterol-Ipratrop 3 mg / 0.5 (3 ml) UD INH PRN (09:45)
--- NOTE | 2018-11-08 13:54 | CP.PCM.PN ---
Subjective - Date & Time of Evaluation Date of Evaluation: 11/08/18 Time of Evaluation: 13:00 - Subjective Subjective: Patient was seen and examined bedside . Feeling better . With some abdominal discomfort . Hemodynmaically stable, afebrile. No acute issues overnight Tolerating PO intake Had BM today and voiding freely Transferred to TCU for PT Objective - Vital Signs/Intake and Output Vital Signs (last 24 hours): Temp Pulse Resp BP Pulse Ox 98.7 F 85 20 148/62 98 11/08/18 08:17 11/08/18 08:50 11/08/18 08:17 11/08/18 08:52 11/08/18 08:17 - Medications Medications: Current Medications Acetaminophen (Tylenol 325mg Tab) 650 mg PO Q4 PRN PRN Reason: Pain, Mild (1-3) Albuterol/Ipratropium (Duoneb 3 Mg/0.5 Mg (3 Ml) Ud) 3 ml INH RQ6 PRN PRN Reason: Shortness of Breath Alprazolam (Xanax) 0.25 mg PO Q12 PRN PRN Reason: Anxiety Stop: 11/15/18 09:46 Last Admin: 11/08/18 09:59 Dose: 0.25 mg Aspirin (Ecotrin) 81 mg PO DAILY [facility] Last Admin: 11/08/18 08:53 Dose: 81 mg Atorvastatin Calcium (Lipitor) 10 mg PO HS [facility] Last Admin: 11/07/18 21:35 Dose: 10 mg Bacitracin (Bacitracin Oint) 1 applic TOP Q12 [facility] Cilostazol (Pletal) 50 mg PO BID [facility] Last Admin: 11/08/18 08:52 Dose: 50 mg Ciprofloxacin (Cipro) 500 mg PO BID [facility]; Protocol Last Admin: 11/08/18 08:51 Dose: 500 mg Clopidogrel Bisulfate (Plavix) 75 mg PO DAILY [facility] Last Admin: 11/08/18 08:53 Dose: 75 mg Docusate Sodium (Colace) 100 mg PO BID [facility] Last Admin: 11/08/18 08:51 Dose: 100 mg Furosemide (Lasix) 20 mg PO DAILY [facility] Last Admin: 11/08/18 08:52 Dose: 20 mg Glipizide (Glucotrol) 10 mg PO BID [facility] Last Admin: 11/08/18 08:52 Dose: 10 mg Heparin Sodium (Porcine) (Heparin) 5,000 units SC Q12 [facility]; Protocol Insulin Human Lispro (Humalog) 0 units SC ACHS [facility]; Protocol Last Admin: 11/08/18 12:21 Dose: 3 units Metformin HCl (Glucophage) 500 mg PO BID [facility] Last Admin: 11/08/18 08:52 Dose: 500 mg Metoprolol Tartrate (Lopressor) 12.5 mg PO BID [facility] Last Admin: 11/08/18 08:50 Dose: 12.5 mg Metronidazole (Flagyl) 500 mg PO Q8 [facility]; Protocol Last Admin: 11/08/18 08:52 Dose: 500 mg Multivitamins/Minerals (Therapeutic-M Tab) 1 tab PO DAILY [facility] Last Admin: 11/08/18 08:53 Dose: 1 tab Ondansetron HCl (Zofran Odt) 4 mg PO Q8 PRN PRN Reason: Nausea/Vomiting Oxycodone/Acetaminophen (Percocet 5/325 Mg Tab) 1 tab PO Q6H PRN PRN Reason: Other Stop: 11/10/18 20:14 Last Admin: 11/08/18 11:11 Dose: 1 tab Pantoprazole Sodium (Protonix Ec Tab) 40 mg PO Q12 [facility] Last Admin: 11/08/18 08:52 Dose: 40 mg Sennosides (Senokot Tab) 8.6 mg PO HS [facility] Last Admin: 11/07/18 21:35 Dose: 8.6 mg Sitagliptin Phosphate (Januvia) 50 mg PO DAILY [facility] Last Admin: 11/08/18 08:52 Dose: 50 mg - Labs Labs: 11/08/18 06:04 11/08/18 06:04 PT 12.3 Seconds (9.8-13.1) 11/08/18 06:04 INR 1.1 11/08/18 06:04 APTT 25.7 Seconds (25.6-37.1) 11/08/18 06:04 - Constitutional Appears: Non-toxic, No Acute Distress - Head Exam Head Exam: ATRAUMATIC, NORMAL INSPECTION, NORMOCEPHALIC - Eye Exam Eye Exam: EOMI, Normal appearance, PERRL Pupil Exam: NORMAL ACCOMODATION - ENT Exam ENT Exam: Mucous Membranes Moist, Normal Exam - Neck Exam Neck Exam: Full ROM, Normal Inspection - Respiratory Exam Respiratory Exam: Clear to Ausculation Bilateral, NORMAL BREATHING PATTERN. absent: Rales, Rhonchi, Wheezes, Respiratory Distress - Cardiovascular Exam Cardiovascular Exam: REGULAR RHYTHM, RRR, +S1, +S2. absent: JVD - GI/Abdominal Exam GI & Abdominal Exam: Soft, Tenderness, Normal Bowel Sounds. absent: Rigid, Rebound Additional comments: midline surgical scar present midlower abdomen surgical incision with dressing in place - Rectal Exam Rectal Exam: Deferred - Extremities Exam Extremities Exam: Full ROM, Normal Capillary Refill, Normal Inspection. absent: Pedal Edema - Back Exam Back Exam: NORMAL INSPECTION - Neurological Exam Neurological Exam: Alert, Awake, CN II-XII Intact - Psychiatric Exam Psychiatric exam: Flat Affect - Skin Skin Exam: Dry, Normal Color, Warm Assessment and Plan - Assessment and Plan (Free Text) Assessment: 73 years old Female transferred at [facility] for PT. She had an Open Appendectomy on 10/14/18 at [facility] and was discharged to the [facility], then returned to [facility] on 10/29/[address] guided drainage of the pelvic Hematoma on 10/31/18. At present feeling well. on Cipro and flagyl PO Drains removed 1. Abdominal Pain s/p Open Appendectomy and Hematoma evacuation in the pelvis improving , having BM and voiding freely Finished full course of IV antibiotics until 11/08 (as per surgery )and drains removed . Now on Cipro and Flagyl PO Continue PT pain management PRN bacitracin topical to mid lower abdominal incision Follow up with Surgery in one week 2 .DM II continue accuchecks, diabetic diet , lispro coverage ACHS on Metformin , januvi and glipizide 3. PVD on ASA,Plavix, lipitor and Cilostazole 4. Mild anemia chronic stable 5. DVT prophylaxis Lovenox
[2018-11-08] MEDS: Bacitracin OINT 15GM TOP SCH (21:04)
[2018-11-09] MEDS: Oxycodone/Acetaminophen 5/325 mg Tab PO PRN ×4 (04:02→23:02)
[2018-11-09] MEDS: Insulin Lispro (humaLOG) 100 Units/ml Inj SC SCH ×4 (06:36→21:22)
[2018-11-09] MEDS: Bacitracin OINT 15GM TOP SCH ×2 (08:32→21:02)
[2018-11-09] MEDS: Multivitamin With Minerals Tab PO SCH (08:35)
[2018-11-09] MEDS: Pantoprazole 40 mg EC Tab PO SCH ×2 (08:35→21:02)
[2018-11-09] MEDS: Cilostazol 50 mg Tab UD PO SCH ×2 (08:36→16:20)
--- NOTE | 2018-11-10 01:34 | PN ---
DATE: 11/09/2018 SUBJECTIVE: The patient is seen today, 11/09/2018. She is tolerating diet well and less abdominal pain. OBJECTIVE: VITAL SIGNS: Temperature 97.4, respiratory rate 20, pulse 92, blood pressure 114/60. HEENT: Pupils equal and reactive to light. Normal-appearing mucosa of the conjunctivae, oropharynx, and nasal membrane mucosa. NECK: Supple. No JVD. No carotid bruit. No lymph node. No thyromegaly. CHEST AND LUNGS: Bilateral symmetrical expansion. Good air exchange. No rales, no rhonchi. CARDIOVASCULAR SYSTEM: PMI not localized. S1, S2. No additional sounds. ABDOMEN: Normoactive bowel sounds. No tenderness. No organomegaly. No masses. The surgical abdominal wound is healing. CENTRAL NERVOUS SYSTEM: Alert, awake, oriented x3. No neurological deficit could be appreciated. ASSESSMENT: 1. Status post laparotomy for appendectomy and hernia and lysis of adhesion. 2. Type 2 diabetes mellitus. 3. Postoperative pelvic abscess, status post incision and drainage by interventional radiologist. 4. Hypertension. 5. Peripheral vascular disease. PLAN: Continue current medications, pain management, physical therapy, and occupational therapy. [facility]
[2018-11-10] MEDS: Oxycodone/Acetaminophen 5/325 mg Tab PO PRN ×3 (05:16→19:43)
[2018-11-10] MEDS: Insulin Lispro (humaLOG) 100 Units/ml Inj SC SCH ×4 (06:29→21:32)
[2018-11-10] MEDS: Bacitracin OINT 15GM TOP SCH ×2 (08:16→21:21)
[2018-11-10] MEDS: Multivitamin With Minerals Tab PO SCH (08:17)
[2018-11-10] MEDS: Pantoprazole 40 mg EC Tab PO SCH ×2 (08:19→21:31)
[2018-11-10] MEDS: Cilostazol 50 mg Tab UD PO SCH ×2 (08:19→16:39)
[2018-11-11] MEDS: Insulin Lispro (humaLOG) 100 Units/ml Inj SC SCH ×4 (06:46→21:22)
[2018-11-11] MEDS: Bacitracin OINT 15GM TOP SCH ×2 (08:23→21:12)
[2018-11-11] MEDS: Pantoprazole 40 mg EC Tab PO SCH ×2 (08:25→21:12)
[2018-11-11] MEDS: Multivitamin With Minerals Tab PO SCH (08:25)
[2018-11-11] MEDS: Cilostazol 50 mg Tab UD PO SCH ×2 (08:25→16:03)
[2018-11-11] MEDS: Oxycodone/Acetaminophen 5/325 mg Tab PO PRN ×3 (08:51→21:14)
[2018-11-12] MEDS: Insulin Lispro (humaLOG) 100 Units/ml Inj SC SCH ×4 (06:40→22:28)
[2018-11-12] MEDS: Oxycodone/Acetaminophen 5/325 mg Tab PO PRN ×3 (07:17→21:07)
[2018-11-12] MEDS: Multivitamin With Minerals Tab PO SCH (08:04)
[2018-11-12] MEDS: Pantoprazole 40 mg EC Tab PO SCH ×2 (08:06→21:08)
[2018-11-12] MEDS: Cilostazol 50 mg Tab UD PO SCH ×2 (08:06→16:59)
[2018-11-12] MEDS: Bacitracin OINT 15GM TOP SCH ×2 (08:08→21:06)
--- NOTE | 2018-11-12 10:51 | PN ---
DATE: 11/11/2018 SUBJECTIVE: The patient was seen on 11/11/2018 in the transitional care unit. PHYSICAL EXAMINATION: VITAL SIGNS: Blood pressure 110/54, temperature 99, respiratory rate 20 and pulse 97. HEENT: Pupils equal, reactive to light. Normal-appearing mucosa of the conjunctivae, oropharynx and nasal membrane mucosa. NECK: Supple. No JVD. No carotid bruit. No lymph node. No thyromegaly. CHEST AND LUNGS: Bilateral symmetrical expansion. Good air exchange. No rales. No rhonchi. CARDIOVASCULAR SYSTEM: PMI not localized. S1, S2. No additional sounds. ABDOMEN: Normoactive bowel sounds. No tenderness. No organomegaly. No masses. EXTREMITIES: No cyanosis. No clubbing. No edema. 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 No neurological deficit could be appreciated. ASSESSMENT: 1. Status post laparotomy with postoperative pelvic complications of pelvic abscess status post drainage of pelvic abscess by Interventional Radiology. 2. Type 2 diabetes mellitus. 3. Hypertension. 4. Peripheral vascular disease. PLAN: Continue current medications and we will discontinue the antibiotics and continue the current Accu-Cheks with insulin coverage, physical therapy, occupational therapy. Ney Faust MD
[2018-11-12 11:09] LABS: BASO # 0.1 K/uL (0.0-0.2); BASO % 0.7 % (0.0-2.0); EOS # 0.2 K/uL (0.0-0.7); EOS % 2.3 % (0.0-4.0); HEMOGLOBIN 11.2 g/dL (12.0-16.0); LYMPH # 0.9 K/uL (1.0-4.3); LYMPH % 13.2 % (20.0-40.0); MEAN CELL VOLUME 91.6 fl (81.0-99.0); MEAN CORPUSCULAR HEMOGLOBIN 29.2 pg (27.0-31.0); MEAN CORPUSCULAR HGB CONC 31.8 g/dL (33.0-37.0); MEAN PLATELET VOLUME 8.8 fl (7.2-11.7); MONO # 0.8 K/uL (0.0-0.8); MONO % 11.2 % (0.0-10.0); NEUT # 5.1 K/uL (1.8-7.0); NEUT % 72.6 % (50.0-75.0); NRBC % 0.1 % (0.0-0.0); RBC 3.85 Mil/uL (3.80-5.20); RED CELL DISTRIBUTION WIDTH 15.9 % (11.5-14.5)
[2018-11-12 11:20] LABS: ALB/GLOB RATIO 1.1 (1.0-2.1); ALBUMIN 3.6 g/dL (3.5-5.0); ALT/SGPT 17 U/L (9-52); AST/SGOT 40 U/L (14-36); BLOOD UREA NITROGEN 10 mg/dl (7-17); CALCIUM 9.7 mg/dL (8.4-10.2); GFR NON-AFRICAN AMERICAN > 60
--- NOTE | 2018-11-12 23:49 | PN ---
DATE: 11/12/2018 SUBJECTIVE: The patient is seen today, 11/12/2018. She is not in any cardiopulmonary distress. PHYSICAL EXAMINATION: VITAL SIGNS: Blood pressure 116/50, temperature 99.1, respiratory rate 20, and pulse 90. HEENT: Pupils equal, reactive to light. Normal-appearing mucosa of the conjunctivae, oropharynx, and nasal membrane mucosa. NECK: Supple. No JVD. No carotid bruit. No lymph node. No thyromegaly. CHEST AND LUNGS: Bilateral symmetrical expansion. Good air exchange. No rales. No rhonchi. CARDIOVASCULAR SYSTEM: PMI not localized. S1, S2. No additional sounds. ABDOMEN: Normoactive bowel sounds. Staple site is healing. EXTREMITIES: No cyanosis, no clubbing, no edema. CENTRAL NERVOUS SYSTEM: Alert, awake, oriented x2. No neurological deficit could be appreciated. ASSESSMENT: 1. Status post laparotomy for appendectomy and lysis of adhesions with postoperative pelvic abscess. Status post Interventional Radiology drainage of the abscess. 2. Type 2 diabetes mellitus. 3. Hypertension. 4. History of peripheral vascular disease. PLAN: Continue current physical therapy and occupational therapy. Continue Accu-Cheks with insulin coverage. Continue current medications. Ney Faust MD
[2018-11-13] MEDS: Insulin Lispro (humaLOG) 100 Units/ml Inj SC SCH ×4 (06:32→22:00)
[2018-11-13] MEDS: Oxycodone/Acetaminophen 5/325 mg Tab PO PRN ×2 (09:04→17:28)
[2018-11-13] MEDS: Bacitracin OINT 15GM TOP SCH ×2 (09:51→22:07)
[2018-11-13] MEDS: Pantoprazole 40 mg EC Tab PO SCH ×2 (09:51→22:07)
[2018-11-13] MEDS: Cilostazol 50 mg Tab UD PO SCH ×2 (09:52→16:18)
[2018-11-13] MEDS: Multivitamin With Minerals Tab PO SCH (09:52)
[2018-11-14] MEDS: Oxycodone/Acetaminophen 5/325 mg Tab PO PRN ×3 (03:51→18:30)
[2018-11-14] MEDS: Insulin Lispro (humaLOG) 100 Units/ml Inj SC SCH ×4 (07:15→21:34)
[2018-11-14] MEDS: Bacitracin OINT 15GM TOP SCH ×2 (08:53→21:33)
[2018-11-14] MEDS: Cilostazol 50 mg Tab UD PO SCH ×2 (08:54→16:22)
[2018-11-14] MEDS: Pantoprazole 40 mg EC Tab PO SCH ×2 (08:54→21:33)
[2018-11-14] MEDS: Multivitamin With Minerals Tab PO SCH (08:55)
[2018-11-14 16:16] VITALS: RESP 20
--- NOTE | 2018-11-15 03:05 | PN ---
DATE: 11/14/2018 SUBJECTIVE: The patient is seen today, 11/14/2018. She is not in any cardiopulmonary distress. PHYSICAL EXAMINATION: VITAL SIGNS: Blood pressure is 116/56, temperature 98.7, respiratory rate 20, and pulse 98. HEENT: Pupils equal, reactive to light. Normal-appearing mucosa of the conjunctivae, oropharynx and nasal membrane mucosa. NECK: Supple, no JVD. No carotid bruit. No lymph node. No thyromegaly. CHEST AND LUNGS: Bilateral symmetrical expansion. Good air exchange. No rales, no rhonchi. CARDIOVASCULAR SYSTEM: PMI not localized. S1, S2. No additional sounds. ABDOMEN: Normoactive bowel sounds. No tenderness. No organomegaly. No masses. EXTREMITIES: No cyanosis, no clubbing, no edema. CENTRAL NERVOUS SYSTEM: Alert, awake, oriented x2. No neurological deficit could be appreciated. ASSESSMENT: Status post laparotomy for appendectomy and lysis of adhesions, hypertension, type 2 diabetes mellitus. PLAN: Continue current medications and management and physical therapy, and we will discontinue antibiotics for today and monitor the patient closely until discharge. Ney Faust MD
[2018-11-15] MEDS: Oxycodone/Acetaminophen 5/325 mg Tab PO PRN ×3 (04:09→20:39)
[2018-11-15] MEDS: Insulin Lispro (humaLOG) 100 Units/ml Inj SC SCH ×4 (06:58→22:21)
[2018-11-15] MEDS: Bacitracin OINT 15GM TOP SCH ×2 (08:09→21:05)
[2018-11-15] MEDS: Multivitamin With Minerals Tab PO SCH (08:11)
[2018-11-15] MEDS: Cilostazol 50 mg Tab UD PO SCH ×2 (08:11→16:15)
[2018-11-15] MEDS: Pantoprazole 40 mg EC Tab PO SCH ×2 (08:11→21:03)
[2018-11-15 17:43] LABS: HEMOGLOBIN 10.7 g/dL (12.0-16.0); MEAN CORPUSCULAR HEMOGLOBIN 29.2 pg (27.0-31.0); MEAN CORPUSCULAR HGB CONC 32.8 g/dL (33.0-37.0); RBC 3.68 Mil/uL (3.80-5.20); RED CELL DISTRIBUTION WIDTH 15.6 % (11.5-14.5); WHITE BLOOD COUNT 7.8 K/uL (4.8-10.8)
[2018-11-15 17:48] LABS: BLOOD UREA NITROGEN 12 mg/dl (7-17); CALCIUM 9.9 mg/dL (8.4-10.2); GFR NON-AFRICAN AMERICAN > 60
[2018-11-16] MEDS: Oxycodone/Acetaminophen 5/325 mg Tab PO PRN ×2 (05:10→11:58)
[2018-11-16] MEDS: Insulin Lispro (humaLOG) 100 Units/ml Inj SC SCH ×2 (06:34→12:00)
[2018-11-16 09:54] VITALS: BP 128/64; TEMP 98.7; O2SAT 97
[2018-11-16] MEDS: Bacitracin OINT 15GM TOP SCH (10:03)
[2018-11-16] MEDS: Pantoprazole 40 mg EC Tab PO SCH (10:04)
[2018-11-16] MEDS: Multivitamin With Minerals Tab PO SCH (10:04)
[2018-11-16 10:06] VITALS: PULSE 98
[2018-11-16] MEDS: Cilostazol 50 mg Tab UD PO SCH (10:06)
--- NOTE | 2018-11-16 10:39 | PN ---
DATE: 11/15/2018 SUBJECTIVE: She was not in any cardiopulmonary distress. She was still complaining of pain at the site of the surgical wound. PHYSICAL EXAMINATION: VITAL SIGNS: Blood pressure was 135/62, temperature 98.4, respiratory rate 20 and pulse 90. HEENT: Pupils equal, reactive to light. Normal-appearing mucosa of the conjunctivae, oropharynx and nasal membrane mucosa. NECK: Supple. No JVD. No carotid bruit. No lymph node. No thyromegaly. CHEST AND LUNGS: Bilateral symmetrical expansion. Good air exchange. No rales, no rhonchi. CARDIOVASCULAR: PMI not localized. S1, S2. No additional sounds. ABDOMEN: Normoactive bowel sounds. No tenderness. No organomegaly. No masses. EXTREMITIES: No cyanosis, no clubbing, no edema. CENTRAL NERVOUS SYSTEM: Alert, awake, oriented x2. No neurological deficit could be appreciated. ASSESSMENT: Status post laparotomy for appendectomy and lysis of adhesions, peripheral vascular disease, hypertension, chronic obstructive pulmonary disease, type 2 diabetes mellitus. PLAN: Continue current medications and discharge planning for 11/16/2018. Continue physical therapy and occupational therapy. Ney Faust MD
== END 2018-11-16 13:47 | disposition home or self-care (01) | DRG 950 ==
LOC: H.TCU 17:14
PROVIDERS: ADMIT Internal Medicine; ATTEND Internal Medicine
PROC: F07Z9FZ Gait Training/Functional Ambulation Treatment using Assistive, Adaptive, Supportive or Protective Equipment (ICD-10-PCS; principal; 2018-11-07)
PROC: F07Z8FZ Transfer Training Treatment using Assistive, Adaptive, Supportive or Protective Equipment (ICD-10-PCS; 2018-11-07)
PROC: F08Z1FZ Dressing Techniques Treatment using Assistive, Adaptive, Supportive or Protective Equipment (ICD-10-PCS; 2018-11-07)
DX: Z48.815 Encounter for surgical aftercare following surgery on the digestive system (principal); Z88.0 Allergy status to penicillin; Z88.2 Allergy status to sulfonamides; Z87.891 Personal history of nicotine dependence; F41.9 Anxiety disorder, unspecified; M19.90 Unspecified osteoarthritis, unspecified site; J44.9 Chronic obstructive pulmonary disease, unspecified; I25.10 Atherosclerotic heart disease of native coronary artery without angina pectoris; E78.5 Hyperlipidemia, unspecified; M81.0 Age-related osteoporosis without current pathological fracture; E11.51 Type 2 diabetes mellitus with diabetic peripheral angiopathy without gangrene; I10 Essential (primary) hypertension; E78.00 Pure hypercholesterolemia, unspecified; D64.9 Anemia, unspecified

== ENCOUNTER 2019-03-29 18:59 | Inpatient (IN) | payer MEDICARE ==
[2019-03-29 20:53] VITALS: BMI 22.8
[2019-03-29] MEDS ORDERED: Albuterol-Ipratrop 3 mg / 0.5 (3 ml) UD INH PRN (21:25)
[2019-03-29] MEDS: Insulin Lispro (humaLOG) 100 Units/ml Inj SC SCH (21:30)
[2019-03-29] MEDS: Sucralfate 1 gm/10 ml Oral Susp UD PO SCH (22:54)
[2019-03-30] MEDS: Insulin Lispro (humaLOG) 100 Units/ml Inj SC SCH ×4 (06:35→21:26)
[2019-03-30 07:24] LABS: HEMOGLOBIN 8.7 g/dL (12.0-16.0); MEAN CELL VOLUME 90.7 fl (81.0-99.0); MEAN CORPUSCULAR HGB CONC 33.1 g/dL (33.0-37.0); RBC 2.9 Mil/uL (3.80-5.20); RED CELL DISTRIBUTION WIDTH 15.1 % (11.5-14.5); WHITE BLOOD COUNT 9.2 K/uL (4.8-10.8)
[2019-03-30 07:34] LABS: BLOOD UREA NITROGEN 10 mg/dl (7-17); CALCIUM 9.1 mg/dL (8.4-10.2); GFR NON-AFRICAN AMERICAN > 60
[2019-03-30 07:38] LABS: PROTHROMBIN TIME 11.5 Seconds (9.8-13.1)
[2019-03-30 07:40] LABS: PARTIAL THROMBOPLASTIN TIME 27.1 Seconds (25.6-37.1)
[2019-03-30] MEDS: Sucralfate 1 gm/10 ml Oral Susp UD PO SCH ×4 (08:27→21:21)
[2019-03-30] MEDS: Lidocaine 2% GEL TOP SCH ×2 (08:30→16:08)
[2019-03-30] MEDS: Insulin Detemir 100 Units/ml Inj SC SCH (08:30)
[2019-03-30] MEDS: Pantoprazole 40 mg EC Tab PO SCH (08:31)
[2019-03-30] MEDS: Cilostazol 50 mg Tab UD PO SCH ×2 (08:32→16:07)
[2019-03-30] MEDS: Enoxaparin 40 mg Syringe SC SCH (08:36)
[2019-03-30] MEDS: Mupirocin 2% Oint 1GM UD TOP SCH (16:56)
--- NOTE | 2019-03-31 04:04 | HP ---
HISTORY OF PRESENT ILLNESS: This is a 74-year-old -[place] female with history of multiple medical problems, was in [facility] for coronary artery disease management. The patient's stay was complicated with diverticulitis. The patient was started on IV antibiotic and she was brought to transitional care unit at [facility] for deconditioning and completion of IV antibiotic therapy. The patient denied to have any chest pain, shortness of breath or any abdominal pain at this point. The patient was started on all her medications and other review of system is negative. ALLERGIES: POSITIVE FOR PENICILLIN AND SULFA AND TOMATO. PAST MEDICAL HISTORY: Hypertension, hypercholesterolemia, type 2 diabetes mellitus, osteoarthritis. SOCIAL HISTORY: Positive smoker. No ETOH abuse. PHYSICAL EXAMINATION: VITAL SIGNS: Blood pressure 125/64, temperature in the 97.9, respiratory rate 20 and pulse 84. HEENT: Pupils equal, reactive to light. Normal-appearing mucosa of the conjunctivae, oropharynx and nasal membrane mucosa. NECK: Supple. No JVD. No carotid bruit. No lymph node. No thyromegaly. CHEST AND LUNGS: Bilateral symmetrical expansion. Good air exchange. No rales, no rhonchi. CARDIOVASCULAR SYSTEM: PMI not localized. S1, S2. No additional sounds. ABDOMEN: Normoactive bowel sounds. No tenderness, no organomegaly. No masses. EXTREMITIES: No cyanosis, no clubbing, no edema. CENTRAL NERVOUS SYSTEM: Alert, awake, oriented x2. No neurological deficit could be appreciated. ASSESSMENT: Diverticulitis, hypertension, type 2 diabetes mellitus, coronary artery disease, severe peripheral vascular disease. PLAN: Continue current IV antibiotics, physical therapy and occupational therapy. Continue current medications with Accu-Cheks. I will be away from 03/31/2019 to 04/05/2019 and the hospitalist is covering. Ney Faust MD
[2019-03-31] MEDS: Insulin Lispro (humaLOG) 100 Units/ml Inj SC SCH ×4 (06:51→21:37)
[2019-03-31] MEDS: Sucralfate 1 gm/10 ml Oral Susp UD PO SCH ×4 (07:38→21:42)
[2019-03-31] MEDS: Enoxaparin 40 mg Syringe SC SCH (08:46)
[2019-03-31] MEDS: Pantoprazole 40 mg EC Tab PO SCH (08:47)
[2019-03-31] MEDS: Cilostazol 50 mg Tab UD PO SCH ×2 (08:48→16:49)
[2019-03-31] MEDS: Mupirocin 2% Oint 1GM UD TOP SCH ×2 (08:50→16:50)
[2019-03-31] MEDS: Lidocaine 2% GEL TOP SCH ×2 (08:50→16:49)
[2019-03-31] MEDS: Insulin Detemir 100 Units/ml Inj SC SCH (09:30)
[2019-04-01] MEDS: Insulin Lispro (humaLOG) 100 Units/ml Inj SC SCH ×4 (06:41→22:49)
[2019-04-01] MEDS: Sucralfate 1 gm/10 ml Oral Susp UD PO SCH ×4 (08:50→22:13)
[2019-04-01] MEDS: Mupirocin 2% Oint 1GM UD TOP SCH ×2 (08:51→16:47)
[2019-04-01] MEDS: Enoxaparin 40 mg Syringe SC SCH (08:52)
[2019-04-01] MEDS: Pantoprazole 40 mg EC Tab PO SCH (08:53)
[2019-04-01] MEDS: Insulin Detemir 100 Units/ml Inj SC SCH (08:55)
[2019-04-01] MEDS: Cilostazol 50 mg Tab UD PO SCH ×2 (08:56→16:50)
[2019-04-01] MEDS: Lidocaine 2% GEL TOP SCH ×2 (08:57→16:52)
[2019-04-02] MEDS: Insulin Lispro (humaLOG) 100 Units/ml Inj SC SCH ×3 (07:09→23:03)
[2019-04-02] MEDS: Sucralfate 1 gm/10 ml Oral Susp UD PO SCH ×4 (07:12→22:42)
[2019-04-02] MEDS: Mupirocin 2% Oint 1GM UD TOP SCH ×2 (09:22→16:55)
[2019-04-02] MEDS: Enoxaparin 40 mg Syringe SC SCH (09:22)
[2019-04-02] MEDS: Lidocaine 2% GEL TOP SCH ×2 (09:22→16:56)
[2019-04-02] MEDS: Pantoprazole 40 mg EC Tab PO SCH (09:23)
[2019-04-02] MEDS: Cilostazol 50 mg Tab UD PO SCH (09:24)
[2019-04-02] MEDS: Insulin Detemir 100 Units/ml Inj SC SCH (10:42)
[2019-04-03] MEDS: Sucralfate 1 gm/10 ml Oral Susp UD PO SCH ×4 (06:41→22:00)
[2019-04-03] MEDS: Insulin Lispro (humaLOG) 100 Units/ml Inj SC SCH ×4 (07:00→21:25)
[2019-04-03 07:13] LABS: HEMOGLOBIN 9.3 g/dL (12.0-16.0); MEAN CELL VOLUME 90.1 fl (81.0-99.0); MEAN CORPUSCULAR HEMOGLOBIN 30.1 pg (27.0-31.0); MEAN CORPUSCULAR HGB CONC 33.5 g/dL (33.0-37.0); RBC 3.08 Mil/uL (3.80-5.20); RED CELL DISTRIBUTION WIDTH 15.1 % (11.5-14.5); WHITE BLOOD COUNT 6.9 K/uL (4.8-10.8)
[2019-04-03 07:45] LABS: BLOOD UREA NITROGEN 8 mg/dl (7-17); CALCIUM 9.6 mg/dL (8.4-10.2); GFR NON-AFRICAN AMERICAN > 60
[2019-04-03] MEDS: Lidocaine 2% GEL TOP SCH ×2 (08:07→16:52)
[2019-04-03] MEDS: Mupirocin 2% Oint 1GM UD TOP SCH ×2 (08:07→16:53)
[2019-04-03] MEDS: Pantoprazole 40 mg EC Tab PO SCH (08:08)
[2019-04-03] MEDS: Cilostazol 50 mg Tab UD PO SCH ×2 (08:09→16:52)
[2019-04-03] MEDS: Insulin Detemir 100 Units/ml Inj SC SCH (08:10)
[2019-04-03] MEDS: Enoxaparin 40 mg Syringe SC SCH (16:51)
[2019-04-04] MEDS: Insulin Lispro (humaLOG) 100 Units/ml Inj SC SCH ×4 (06:49→23:00)
[2019-04-04] MEDS: Sucralfate 1 gm/10 ml Oral Susp UD PO SCH ×4 (08:21→21:26)
[2019-04-04] MEDS: Enoxaparin 40 mg Syringe SC SCH (09:20)
[2019-04-04] MEDS: Cilostazol 50 mg Tab UD PO SCH ×3 (09:21→16:56)
[2019-04-04] MEDS: Mupirocin 2% Oint 1GM UD TOP SCH ×2 (09:21→16:55)
[2019-04-04] MEDS: Pantoprazole 40 mg EC Tab PO SCH (09:22)
[2019-04-04] MEDS: Lidocaine 2% GEL TOP SCH ×2 (09:23→16:58)
[2019-04-04] MEDS: Insulin Detemir 100 Units/ml Inj SC SCH (09:24)
--- NOTE | 2019-04-04 10:14 | CP.PCM.PN ---
Subjective - Date & Time of Evaluation Date of Evaluation: 04/04/19 Time of Evaluation: 09:00 - Subjective Subjective: Patient seen and examined during OT. Feeling well and ready to go home Hemodynamically stable, afebrile No acute issues overnight Participating with PT Objective - Vital Signs/Intake and Output Vital Signs (last 24 hours): Temp Pulse Resp BP Pulse Ox 97.9 F 71 20 121/54 L 97 04/03/19 19:24 04/04/19 09:24 04/03/19 19:24 04/04/19 09:24 04/03/19 19:24 - Medications Medications: Current Medications Acetaminophen (Tylenol 325mg Tab) 650 mg PO Q4 PRN PRN Reason: Pain, Mild (1-3) Albuterol/Ipratropium (Duoneb 3 Mg/0.5 Mg (3 Ml) Ud) 3 ml INH RQ6 PRN PRN Reason: Shortness of Breath Alprazolam (Xanax) 0.25 mg PO Q8 PRN PRN Reason: Anxiety Stop: 04/05/19 21:26 Last Admin: 04/03/19 12:09 Dose: 0.25 mg Aspirin (Ecotrin) 81 mg PO DAILY [facility] Last Admin: 04/04/19 09:23 Dose: 81 mg Atorvastatin Calcium (Lipitor) 40 mg PO HS [facility] Last Admin: 04/03/19 21:31 Dose: 40 mg Cilostazol (Pletal) 50 mg PO BID [facility] Last Admin: 04/04/19 09:23 Dose: 50 mg Docusate Sodium (Colace Liquid) 100 mg PO HS [facility] Last Admin: 04/03/19 21:26 Dose: Not Given Enoxaparin Sodium (Lovenox) 40 mg SC DAILY [facility]; Protocol Last Admin: 04/04/19 09:20 Dose: 40 mg Ertapenem 1 gm/ Sodium (Chloride) 100 mls @ 100 mls/hr IVPB DAILY [facility]; Protocol Last Admin: 04/04/19 09:25 Dose: 100 mls/hr Insulin Detemir (Levemir) 15 units SC BRK [facility] Last Admin: 04/04/19 09:24 Dose: 15 unit Insulin Human Lispro (Humalog) 0 units SC ACHS [facility]; Protocol Last Admin: 04/04/19 06:49 Dose: Not Given Lidocaine HCl (Xylocaine 2%) 1 applic TOP BID [facility] Last Admin: 04/04/19 09:23 Dose: 1 applic Lisinopril (Zestril) 2.5 mg PO DAILY [facility] Last Admin: 04/04/19 09:22 Dose: 2.5 mg Metoclopramide HCl (Reglan) 10 mg PO [facility] Last Admin: 04/04/19 08:22 Dose: 10 mg Metoprolol Tartrate (Lopressor) 12.5 mg PO Q12 [facility] Last Admin: 04/04/19 09:24 Dose: 12.5 mg Mupirocin (Bactroban Ointment) 1 applic TOP BID [facility] Last Admin: 04/04/19 09:21 Dose: 1 applic Pantoprazole Sodium (Protonix Ec Tab) 40 mg PO DAILY [facility] Last Admin: 04/04/19 09:22 Dose: 40 mg Paroxetine HCl (Paxil) 10 mg PO DAILY [facility] Last Admin: 04/04/19 09:22 Dose: 10 mg Sucralfate (Carafate Oral Susp) 1 gm PO [facility] Last Admin: 04/04/19 08:21 Dose: 1 gm - Labs Labs: 04/03/19 06:55 04/03/19 06:55 PT 11.5 Seconds (9.8-13.1) 03/30/19 06:50 INR 1.0 03/30/19 06:50 APTT 27.1 Seconds (25.6-37.1) 03/30/19 06:50 - Constitutional Appears: Non-toxic, No Acute Distress - Head Exam Head Exam: ATRAUMATIC, NORMOCEPHALIC - Eye Exam Eye Exam: EOMI, PERRL Pupil Exam: NORMAL ACCOMODATION - ENT Exam ENT Exam: Mucous Membranes Moist, Normal Exam - Neck Exam Neck Exam: Normal Inspection - Respiratory Exam Respiratory Exam: Clear to Ausculation Bilateral, NORMAL BREATHING PATTERN. absent: Rales, Rhonchi, Wheezes - Cardiovascular Exam Cardiovascular Exam: Murmur (systolic murmur\) - GI/Abdominal Exam GI & Abdominal Exam: Soft, Normal Bowel Sounds. absent: Distended, Guarding, T enderness, Rebound - Rectal Exam Rectal Exam: Deferred - Extremities Exam Extremities Exam: Normal Capillary Refill, Normal Inspection - Back Exam Back Exam: NORMAL INSPECTION - Neurological Exam Neurological Exam: Alert, Awake, CN II-XII Intact, Oriented x3 - Psychiatric Exam Psychiatric exam: Normal Affect - Skin Skin Exam: Dry, Normal Color, Warm Assessment and Plan - Assessment and Plan (Free Text) Assessment: 74 y/o F with PMH CAD, HTN, dyslipidemia, DM admitted to TCU for continuation of IV antibiotics and PT. At present feeling well, participating with PT 1.Deconditioning feeling well wants to go home 2.Colitis improved on Ertapenem 3.Hypertension- controlled on lisinopril and metoprolol 4.IDDM controlled Continue accuchecks , diabetic diet and Levemir 5.Dyslipidemia on statin 6.CAD Continue Statin, Metoprolol, Lisinopril and ASA 7.Depression with anxiety on paxil and xanax PRN on
[2019-04-05] MEDS: Sucralfate 1 gm/10 ml Oral Susp UD PO SCH ×4 (07:16→21:08)
[2019-04-05] MEDS: Insulin Lispro (humaLOG) 100 Units/ml Inj SC SCH ×4 (07:33→21:29)
[2019-04-05] MEDS: Insulin Detemir 100 Units/ml Inj SC SCH (08:00)
[2019-04-05] MEDS: Enoxaparin 40 mg Syringe SC SCH (09:13)
[2019-04-05] MEDS: Lidocaine 2% GEL TOP SCH ×2 (09:14→16:26)
[2019-04-05] MEDS: Mupirocin 2% Oint 1GM UD TOP SCH ×2 (09:14→16:24)
[2019-04-05] MEDS: Cilostazol 50 mg Tab UD PO SCH ×2 (09:15→16:25)
[2019-04-05] MEDS: Pantoprazole 40 mg EC Tab PO SCH (09:16)
[2019-04-05 17:42] VITALS: RESP 20
[2019-04-06] MEDS: Insulin Lispro (humaLOG) 100 Units/ml Inj SC SCH (06:45)
[2019-04-06] MEDS: Sucralfate 1 gm/10 ml Oral Susp UD PO SCH ×4 (06:51→21:29)
[2019-04-06] MEDS: Mupirocin 2% Oint 1GM UD TOP SCH ×2 (08:40→16:26)
[2019-04-06] MEDS: Insulin Detemir 100 Units/ml Inj SC SCH (08:41)
[2019-04-06] MEDS: Enoxaparin 40 mg Syringe SC SCH (08:43)
[2019-04-06] MEDS: Cilostazol 50 mg Tab UD PO SCH ×2 (08:46→16:27)
[2019-04-06] MEDS: Pantoprazole 40 mg EC Tab PO SCH (08:46)
[2019-04-06] MEDS: Lidocaine 2% GEL TOP SCH ×2 (08:47→16:27)
--- NOTE | 2019-04-07 05:00 | PN ---
DATE: 04/06/2019 SUBJECTIVE: The patient is seen today, on 04/06/2019. She is cooperative with physical therapy and occupational therapy. PHYSICAL EXAMINATION: VITAL SIGNS: Blood pressure 149/56, temperature 97.5, respiratory rate 20 and pulse 80. HEENT: Pupils equal, reactive to light. Normal-appearing mucosa of the conjunctivae, oropharynx and nasal membrane mucosa. NECK: Supple. No JVD. No carotid bruit. No lymph node. No thyromegaly. CHEST AND LUNGS: Bilateral symmetrical expansion. Good air exchange. No rales. No rhonchi. CARDIOVASCULAR SYSTEM: PMI not localized. S1, S2. No additional sounds. ABDOMEN: Normoactive bowel sounds. No tenderness. No organomegaly. No masses. EXTREMITIES: No cyanosis, no clubbing, no edema. 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 Moves all extremities equally. ASSESSMENT: Status post diverticulitis, hypertension, type 2 diabetes mellitus, peripheral vascular disease, generalized debilitation. PLAN: Continue current physical therapy and occupational therapy, and we will discontinue p.r.n. medication as it is not needed, antihyperglycemic medications will be continued. Ney Faust MD
[2019-04-07 06:34] LABS: HEMOGLOBIN 8.7 g/dL (12.0-16.0); MEAN CELL VOLUME 91.5 fl (81.0-99.0); MEAN CORPUSCULAR HEMOGLOBIN 30.4 pg (27.0-31.0); MEAN CORPUSCULAR HGB CONC 33.2 g/dL (33.0-37.0); RBC 2.86 Mil/uL (3.80-5.20); RED CELL DISTRIBUTION WIDTH 15.4 % (11.5-14.5); WHITE BLOOD COUNT 6.7 K/uL (4.8-10.8)
[2019-04-07 06:50] LABS: INR 0.9; PROTHROMBIN TIME 10.8 Seconds (9.8-13.1)
[2019-04-07 06:52] LABS: PARTIAL THROMBOPLASTIN TIME 27.8 Seconds (25.6-37.1)
[2019-04-07 06:55] LABS: BLOOD UREA NITROGEN 16 mg/dl (7-17); CALCIUM 9.3 mg/dL (8.4-10.2); GFR NON-AFRICAN AMERICAN > 60
[2019-04-07] MEDS: Sucralfate 1 gm/10 ml Oral Susp UD PO SCH ×2 (07:44→11:38)
[2019-04-07 08:19] VITALS: BP 114/59; PULSE 75; TEMP 98.2; O2SAT 97
[2019-04-07] MEDS: Pantoprazole 40 mg EC Tab PO SCH (08:44)
[2019-04-07] MEDS: Mupirocin 2% Oint 1GM UD TOP SCH (08:44)
[2019-04-07] MEDS: Lidocaine 2% GEL TOP SCH (08:44)
[2019-04-07] MEDS: Cilostazol 50 mg Tab UD PO SCH (08:45)
[2019-04-07] MEDS ORDERED: Enoxaparin 40 mg Syringe SC SCH (09:00)
--- NOTE | 2019-04-08 06:31 | DS ---
REASON FOR ADMISSION: This is a 74-year-old female who was admitted to transitional care unit for completion of IV antibiotic course as well as deconditioning. COURSE OF HOSPITALIZATION: The patient was admitted to transitional care unit at [facility] and she was cooperative to physical therapy and occupational therapy. The patient was continued on IV antibiotics treating diverticulitis. The patient remained afebrile and abdominal pain subsided and tolerated food well and she was discharged home asymptomatic to follow with Dr. Faust. FINAL DIAGNOSES: Diverticulitis, severe peripheral vascular disease, coronary artery disease not amenable to percutaneous transluminal angioplasty, hypertension, type 2 diabetes mellitus, hypercholesterolemia. [facility] MD Govind
== END 2019-04-07 14:30 | disposition hospice, home (50) | DRG 392 ==
LOC: H.TCU 20:53
PROVIDERS: ADMIT Internal Medicine; ATTEND Internal Medicine
PROC: 3E03329 Introduction of Other Anti-infective into Peripheral Vein, Percutaneous Approach (ICD-10-PCS; 2019-03-29)
PROC: F07Z9FZ Gait Training/Functional Ambulation Treatment using Assistive, Adaptive, Supportive or Protective Equipment (ICD-10-PCS; principal; 2019-03-31)
PROC: F07Z5ZZ Bed Mobility Treatment (ICD-10-PCS; 2019-03-31)
PROC: F07Z8ZZ Transfer Training Treatment (ICD-10-PCS; 2019-03-31)
PROC: F07L6FZ Therapeutic Exercise Treatment of Musculoskeletal System - Lower Back / Lower Extremity using Assistive, Adaptive, Supportive or Protective Equipment (ICD-10-PCS; 2019-03-31)
PROC: F08Z2ZZ Grooming/Personal Hygiene Treatment (ICD-10-PCS; 2019-04-04)
PROC: F08Z1ZZ Dressing Techniques Treatment (ICD-10-PCS; 2019-04-04)
DX: K57.92 Diverticulitis of intestine, part unspecified, without perforation or abscess without bleeding (principal); Z79.2 Long term (current) use of antibiotics; K52.9 Noninfective gastroenteritis and colitis, unspecified; R53.81 Other malaise; I10 Essential (primary) hypertension; E11.51 Type 2 diabetes mellitus with diabetic peripheral angiopathy without gangrene; E78.5 Hyperlipidemia, unspecified; F17.200 Nicotine dependence, unspecified, uncomplicated; E78.00 Pure hypercholesterolemia, unspecified; F41.8 Other specified anxiety disorders; I25.10 Atherosclerotic heart disease of native coronary artery without angina pectoris; M19.90 Unspecified osteoarthritis, unspecified site; Z79.4 Long term (current) use of insulin